=== PATIENT | male | born 1970 | race Asian ===

== ENCOUNTER 2018-10-28 20:56 | Emergency (ER) | payer SELFPAY ==
[~2018-10-28] VITALS: Ht 167.6 cm; Wt 63.6 kg
[2018-10-28 21:05] VITALS: Ht 167.6 cm; Wt 63.6 kg
[2018-10-28] MEDS ORDERED: LISINOPRIL20 MG PO (21:06)
[2018-10-28 22:11] LABS: INR 0.96 (0.85-1.17); PROTIME 12.3 SECONDS (11.6-15.0)
[2018-10-28 22:26] LABS: BASOPHILS 0.2 % (0-2); EOSINOPHILS 2.2 % (0-7); HEMATOCRIT 40.7 % (42.0-54.0); IMMATURE GRANULOCYTES 0.5 % (0-5); LYMPHOCYTES 32.1 % (15-50); MCH 30.6 pg (26.0-34.0); MCHC 34.4 g/dL (31.0-37.0); MCV 89.1 fL (80.0-100.0); PLATELET COUNT 282 10x3/uL (130-400); RBC 4.57 10x6/uL (4.20-6.10); RDW 13.2 % (11.5-14.5); WBC 8.2 10x3/uL (4.8-10.8)
[2018-10-28 22:35] LABS: ALBUMIN 3.4 g/dL (3.4-5.0); ALKALINE PHOSPHATASE 119 U/L (46-116); ALT (SGPT) 58 U/L (10-68); BILIRUBIN - TOTAL 0.33 mg/dL (0.2-1.3); CALC OSMOLALITY 285 mosm/kg (275-300); CALCIUM 8.4 mg/dL (8.5-10.1); CARBON DIOXIDE 30.5 mmol/L (21.0-32.0); CHLORIDE - SERUM 105 mmol/L (98-107); CKMB 0.8 U/L (0.0-3.6); CREATINE KINASE 77 UL (21-232); CREATININE - SERUM 0.9 mg/dL (0.6-1.3); GLUCOSE 149 mg/dL (74-106); POTASSIUM - SERUM 3.6 mmol/L (3.5-5.1); SODIUM 142 mmol/L (136-145); TROPONIN-I < 0.017 ng/mL (0.000-0.060); UREA NITROGEN 12 mg/dL (7-18); eGFR NON AFRICAN AMERICAN > 90 mL/min (90-120)
[2018-10-28 22:36] LABS: PROTEIN - SERUM 7.2 g/dL (6.4-8.2)
[2018-10-28] MEDS ORDERED: NORVASC5 MG PO (23:12)
[2018-10-28 23:38] VITALS: BP 148/96
== END 2018-10-28 23:38 | disposition home or self-care (01) ==
LOC: D.ER 20:56
PROVIDERS: Family Medicine
DX: R03.0 Elevated blood-pressure reading, without diagnosis of hypertension (principal)

== ENCOUNTER 2019-10-29 15:42 | Emergency (ER) | payer BC ==
[~2019-10-29] VITALS: Ht 167.6 cm; Wt 59.1 kg
[~2019-10-29 15:42] MED LIST: LISINOPRIL20 MG PO; NORVASC5 MG PO
[2019-10-29 15:51] VITALS: Ht 167.6 cm; Wt 59.1 kg
[2019-10-29] MEDS ORDERED: ERYTHROMYCIN OPT1 GM LEFT EYE (16:33)
[2019-10-29 17:12] VITALS: BP 162/95
== END 2019-10-29 17:13 | disposition home or self-care (01) ==
LOC: D.ER 15:42
DX: S05.01XA Injury of conjunctiva and corneal abrasion without foreign body, right eye, initial encounter (principal); W22.8XXA Striking against or struck by other objects, initial encounter; Y93.89 Activity, other specified; Y92.9 Unspecified place or not applicable; I10 Essential (primary) hypertension

== ENCOUNTER 2020-03-12 09:04 | Inpatient (IN) | payer BC ==
[2020-03-12] VITALS (8 sets, daily range): BP systolic 129–167; BP diastolic 92–103; BMI 20.2
[~2020-03-12] VITALS: Ht 167.6 cm; Wt 52.6 kg
--- NOTE | ~2020-03-12 | HEMODYNAMI ---
PATIENT:SACHIN CORONA MEDICAL RECORD: [id number] : [birth year] LOCATION:Anish[facility] Oconnell2234 [facility]# [id number] ADMISSION DATE: 03/12/20 Generatedon:03/18/202013:24 Patient name: SACHIN CORONA Patient #: [id number] : 1970 Date of study: 03/18/2020 Page: Of Hemodynamic Procedure Report Patient Data Patient Demographics First Name: SACHIN Gender: Male Last Name: JC : 1970 Patient #: [id number] Age: 49 year(s) Race: SSN: [id number] Additional ID: [id number] Contact details Address: [address] [place] [address] State: [place] City: [facility] Zip code: [address] Past Medical History Allergies Allergen Reaction Date Comments Reported Other allergy 03/18/2020 NKA Admission Admission Data Admission Date: 03/12/2020 Admission Time: 16:14 Arrival Date: 03/18/2020 Arrival Time: 0:00 Admit Source: Other Insurance Payor: Private Room #: [id number].[id number] health insurance Height (in.): 65.75 BSA: 1.57 (m2) Height (cm.): 167 BMI: 18.65 (kg/m2) Weight (lbs.): 114.64 Weight (kg.): 52 Lab Results Lab Result Date: 03/18/2020 Lab Result Time: 0:00 Biochemistry Name Units Result Min Max BUN mg/dl 18 --(---*)-- 7 18 Creatinine mg/dl 1 --(--*-)-- 0.6 1.3 eGFR ml/min 84 -*(----)-- 90 120 NONAFRICAN CBC Name Units Result Min Max Hemoglobin g/dl 15.9 --(--*-)-- 13.5 17.5 Procedure Procedure Types Cath Procedure Diagnostic Procedure ESTRADA Procedure Description Procedure Date Procedure Date: 03/18/2020 Procedure Start Time: 12:48 Procedure Staff Name Function Skyler Ritchie MD Performing Physician Deloris Baltazar RT Monitor Shani Renee RT Scrub Luis Shay RN Nurse Luisa Doyle Floor Framer Kerrie Wellington TWO WAY RADIO TECHNICIAN Additional personnel Procedure Data Cath Procedure Fluoroscopy Diagnostic fluoroscopy Total fluoroscopy Time: 0 time: 0 min min Procedure Complications No complications Procedure Medications Medication Administration Route Dosage 0.9% NaCl I.V. 100 ml/hr Hurricaine [place] P.O. [address] Sprays Refer to Anesthesia Notes for Sedation Medications Hemodynamics Rest BSA: 1.57 (m2) HGB: 15.9 (g/dl) O2 Consumption: Estimated: 191.15 (ml/min) O2 Consumption indexed: Estimated:121.75 (ml/min/m) Heart Rate: 76 (bpm) Snapshots Pre Cath Intra NCS Post Cath Vital Signs Time Heart Resp SPO2 etCO2 NIBP (mmHg) Rhythm Pain Sedation Rate (ipm) (%) (mmHg) Status Level (bpm) 13:02:22 74 17 98 0 132/88(101) NSR 0 (11) 10(A) , No pain 13:06:24 86 13 83 0 129/90(114) NSR 0 (11) 10(A) , No pain 13:10:26 82 17 100 29.2 134/87(121) NSR 0 (11) 9(A) , No pain 13:15:02 94 11 98 30 132/89(106) NSR 0 (11) 8(A) , No pain Medications Time Medication Route Dose Verified Delivered Reason Notes Effectiv eness by by 13:08:28 0.9% NaCl I.V. 100 Luis Luis ml/hr Jsapal Shay RN RN 13:08:54 Hurricaine [address] Luis Smith for local [place] Sprays Jaspal Shay anesthetic RN RN 13:09:15 Refer to Luis Smith for Anesthesia Jaspal Shay sedation Notes for RN RN Sedation Medications Procedure Log Time Note 12:48:52 Arrival Date: 03/18/2020 12:00:00 AM 12:49:01 Patient Height : 65.75 inches 12:49:04 Patient Weight : 114.64 lbs 12:49:10 Admit Source: Other 12:49:19 Insurance Payor : Private health insurance 12:49:53 Lab Result : eGFR NONAFRICAN 84 ml/min 12:49:53 Lab Result : Hemoglobin 15.9 g/dl 12:49:53 Lab Result : BUN 18 mg/dl 12:49:53 Lab Result : Creatinine 1 mg/dl 12:49:58 Diagnostic Cath Status : Elective 13:00:55 Procedure Status Urgent Heart Cath (IP). 13:00:59 Shani Thelma RT(R) (CV) sent for patient. Start room use. 13:01:00 Time tracking: Regular hours (M-F 7:00 - 5:00) 13:01:04 Plan of Care:Hemodynamics will remain stable., Cardiac rhythm will remain stable., Comfort level will be maintained., Respiratory function will remain adequate., Patient/ family verbilizes understanding of procedure., Procedure tolerated without complication., Recovers from procedure without complications.. 13:01:12 Patient received from Med II to CCL 3 Alert and oriented. Tansferred to table in Supine position. 13:01:13 Warm blankets applied, and edward hugger turned on for patient comfort. 13:01:13 Correct patient and procedure confirmed by team. 13:01:15 ECG and BP/O2 sat monitors applied to patient. 13:01:16 Vital chart was started 13:01:19 Baseline sample Acquired. 13:01:23 Full Disclosure recording started 13:01:41 H&P Date Dictated: 03/12/2020 Within 30 days and on chart., H&P Addendum completed by physician on day of procedure. (MUST COMPLETE FOR ALL OUTPATIENTS). 13:01:43 Pre-procedure instructions explained to patient. 13:01:45 Family in patients room. 13:01:47 Patient NPO since Midnight. 13:02:00 Patient allergic to Other allergyNKA 13:02:05 Is the patient allergic to Iodine/contrast media? N/A. 13:02:55 Is patient on blood thinner?No 13:03:13 IV patent on arrival in right forearm with 0.9% NaCl at O. 13:03:29 Alarms reviewed by R. N. 13:03:29 Sharps counted by scrub and verified by R.N. 13:03:31 Physician paged 13:05:00 Is patient on blood thinner?Yes 13:05:03 ACC The patient was administered the following blood thiners within the last 24 hours: ACCPlavix 13:05:30 language barrier. 13:05:37 --------ALL STOP TIME OUT------ 13:05:38 Final Timeout: patient, procedure, and site verified with staff and physician. All members of the team are in agreement. 13:05:44 Fire Safety Assessment: A--An alcohol-based skin anteseptic being used preoperatively., C--Open oxygen or nitrous oxide is being used., D--An ESU, laser, or fiber-optic light is being used. 13:06:00 Sedation plan: TIVA Medication:Propofol 13:06:03 Kerrie Paris CRNA present and monitoring patient for TIVA. 13:06:16 Luisa Doyle Manipulator Operator present for ESTRADA. 13:08:28 0.9% NaCl 100 ml/hr I.V. was administered by Luis Shay RN; ; Verbal order read back and verified. 13:08:54 Hurricaine [place] 1 Sprays P.O. was administered by Luis Shay RN; for local anesthetic; Verbal order read back and verified. 13:09:15 Refer to Anesthesia Notes for Sedation Medications was administered by Luis Shay RN; for sedation; Verbal order read back and verified. 13:09:57 Luisa Doyle Manipulator Operator present for ESTRADA. 13:09:59 ESTRADA started. 13:16:22 ESTRADA completed. 13:16:49 Procedure ended.(Physican Out) 13:16:58 Fluoroscopy time 00.00 minutes. 13:17:09 Post Procedure Pulses reassessed and unchanged 13:17:14 Post-procedure physical assessment completed. ASA score P 1 - A normal healthy patient as per Skyler Ritchie MD. 13:17:25 Patient needs reinforcement of post procedure teaching. 13:17:32 Procedure and supply charges have been captured, reviewed, submitted and are correct. 13:17:47 Procedure Complication : No complications 13:17:50 Vital chart was stopped 13:18:06 ESTRADA Findings: no vegetation noted 13:18:10 Operative report dictated upon procedure completion. 13:18:10 See physician's report for complete and final results. 13:18:17 Report given to [facility] II. 13:18:23 Patient transfered to [facility] with Bed. 13:18:27 End room use (Document Last) 13:23:23 End room use (Document Last) 13:23:51 End room use (Document Last) Signature Audit [place] Stage Time Signature Unsigned Intra-Procedure 03/18/2020 Deloris Baltazar 1:23:23 PM RT(R) Intra-Procedure 03/18/2020 Luis 1:23:51 PM Jaspal ALDANA Intra-Procedure 03/18/2020 Skyler Gama 1:24:32 PM Fernando [facility] [address] [place] [address]
--- NOTE | ~2020-03-12 | TEE ---
PATIENT:SACHIN CORONA MEDICAL RECORD: [id number] LOCATION:D.MS Oconnell[facility] AGE OF PATIENT: 49 ADMISSION DATE: 03/12/20 SEX: M REFERRING PHYSICIAN: INTERPRETING PHYSICIAN: JOSÉ LEÓN MD TRANSESOPHAGEAL ECHOCARDIOGRAM Date: 03/13/20 ESTRADA CHARGE INDICATIONS: PREMEDICATIONS: PATIENT'S RESPONSE PROCEDURE DOPPLER MEASUREMENTS: LVIT LA PA 94 RA LVOT 88 RVOT 60 Asc. Ao 129 AV Gradient Peak 6.68 AV Mean 4.00 AV Area 2.1 MV Gradient Peak 3.49 MV Mean 1.65 MV Area INTERPRETATION: Doppler: 2-D: COLOR FLOW DOPPLER NORMAL SALINE STUDY: MISCELLANOUS: DIAGNOSIS: PLAN: Store Coordinator:3 Dr. Mart Oral Health Therapist: Irish LEYVA COMMENTS: DATE OF SERVICE: 03/18/2020 PROCEDURE: Transesophageal note. DESCRIPTION OF PROCEDURE: After general sedation via TIVA via anesthesia, a transesophageal Omniplane probe was placed into the distal esophagus and proximal stomach without difficulty. Probable LVH. LV internal dimensions are normal. Wall motion is normal. EF is greater than or equal to 55%. Aortic valve is tricuspid with good valve excursion. No significant AI. Left atrium TRANSESOPHAGEAL ECHOCARDIOGRAM REPORT [id number] SACHIN CORONA appears normal. Left atrial appendage is well visualized with no evidence of thrombus, good contractility. Mitral valve appears normal. Mild MR. Right-sided chambers were grossly normal. Trivial TR. At the end of procedure, transesophageal Omniplane probe turned posteriorly and this shows minimal atherosclerotic debris in the descending aorta. During the procedure, the patient was monitored continuously with pulse oximetry, telemetry and noninvasive blood pressure monitoring. No evidence of thrombus at all 4 cardiac chambers. TRANSINT:[id number] Voice Confirmation ID: [id number] DOCUMENT ID: [id number] JOSÉ LEÓN MD CC: [id number] DICTATION DATE: 03/18/20 1318 HOME SERVICE DEMONSTRATOR: 03/18/20 1432 ADM IN [place] [address] [place] [address]
--- NOTE | ~2020-03-12 | EC ---
PATIENT:SACHIN CORONA DATE OF SERVICE: 03/12/20 SEX: M MEDICAL RECORD: [id number] DATE OF : [birth year] LOCATION:D.MS Fritz AGE OF PATIENT: 49 ADMISSION DATE: 03/12/20 REFERRING PHYSICIAN: INTERPRETING PHYSICIAN: JOSÉ LEÓN MD ECHOCARDIOGRAM REPORT ECHO CHARGES 4 ECHO COMPLETE Date: 03/13/20 CLINICAL DIAGNOSIS: CVA ECHOCARDIOGRAPHIC MEASUREMENTS (adult normal given) AC root (d.<3.7cm) 3.8 cm LV Septum d (<1.2 cm> 1.2 cm Valve Excursion 1.7 cm LV Septum (systole) 1.5 cm Left Atria (s.<4.0cm> 3.3 cm LVPW d(<1.2cm) 1.3 cm RV (d.<2.3cm) 3.7 cm LVPW (sytole) 1.6 cm LV diastole(<5.6CM) 3.9 cm MV E-F(>70mm/sec) cm LV systole 2.6 cm LVOT Diameter 1.9 cm MV exc.(>10mm) 1.5 cm Est.ejection fraction (50-75%) % DOPPLER: LVIT cm/sec A 83.0 cm/sec E 71.0 cm/sec LA cm/sec RVSP 27 mmHg LVOT 88 cm/sec AOP1/2T m/s Asc. Ao 129 cm/sec RVOT 60 cm/sec RA cm/sec PA 94 cm/sec AV Gradient Peak 6.68 mmHg AV Mean 4.00 mmHg AV Area 2.1 cm MV Gradient Peak 3.49 mmHg MV Mean 1.65 mmHg MV Area cm COMMENTS: [employer] Fruit Crop Farmer: 2 TANIA LEYVA Glaze Mixer: 3 Dr. Mart TAPE# PACS Pericardial Effusion N DATE OF SERVICE: Adequate 2D, color flow imaging, spectral Doppler, and M-Mode. Mild LVH. LV internal dimensions are normal. Wall motion is normal. EF is greater than or equal to 55%. Aortic valve is tricuspid. No evidence of stenosis by Doppler interrogation. Left atrium is normal. Mitral valve shows no prolapse. Trace MR. Right-sided chambers are grossly normal. Trace TR. TRANSINT:[id number] Voice Confirmation ID: [id number] DOCUMENT ID: [id number] ECHOCARDIOGRAM REPORT [id number] SACHIN CORONA GREGORY A MD CC: [id number] DICTATION DATE: 03/14/20 1039 LEGAL INSTRUMENTS EXAMINER: 03/14/20 1523 ADM IN [place] [id number] [facility], [facility]
[~2020-03-12 09:04] MED LIST changes: +ERYTHROMYCIN OPT1 GM LEFT EYE
[2020-03-12 09:37] LABS: BASOPHILS 0.3 % (0-2); EOSINOPHILS 3.2 % (0-7); HEMATOCRIT 46.4 % (42.0-54.0); HEMOGLOBIN 15.7 g/dL (13.5-17.5); IMMATURE GRANULOCYTES 0.2 % (0-5); MCH 30.3 pg (26.0-34.0); MCHC 33.8 g/dL (31.0-37.0); MCV 89.6 fL (80.0-100.0); MEAN PLATELET VOLUME 9.7 fL (7.4-10.4); MONOCYTES 6.4 % (2-11); NEUTROPHILS 61.9 % (40-80); PLATELET COUNT 248 10x3/uL (130-400); RBC 5.18 10x6/uL (4.20-6.10); RDW 12.9 % (11.5-14.5); WBC 6.3 10x3/uL (4.8-10.8)
[2020-03-12 09:56] LABS: CALC OSMOLALITY 278 mosm/kg (275-300); CALCIUM 8.9 mg/dL (8.5-10.1); CARBON DIOXIDE 24.9 mmol/L (21.0-32.0); CHLORIDE - SERUM 104 mmol/L (98-107); GLUCOSE 103 mg/dL (74-106); POTASSIUM - SERUM 4.1 mmol/L (3.5-5.1); SODIUM 140 mmol/L (136-145); UREA NITROGEN 12 mg/dL (7-18); eGFR NON AFRICAN AMERICAN 84 mL/min (90-120)
[2020-03-12 10:11] LABS: APTT 29.2 SECONDS (22.8-39.4); INR 0.94 (0.85-1.17); PROTIME 12.5 SECONDS (11.6-15.0)
[2020-03-12 10:15] LABS: ALKALINE PHOSPHATASE 90 U/L (30-120); ALT (SGPT) 38 U/L (10-68); BILIRUBIN - TOTAL 0.85 mg/dL (0.2-1.3); CKMB 0.7 U/L (0.0-3.6); CREATINE KINASE 78 UL (21-232); PROTEIN - SERUM 7.8 g/dL (6.4-8.2); TROPONIN-I < 0.017 ng/mL (0.000-0.060)
[2020-03-12 11:21] LABS: UDS - AMPHET NEGATIVE QUAL (NEGATIVE); UDS - BARB POSITIVE QUAL (NEGATIVE); UDS - BENZO NEGATIVE QUAL (NEGATIVE); UDS - COCAINE NEGATIVE QUAL (NEGATIVE); UDS - OPIATE NEGATIVE QUAL (NEGATIVE); UDS - PCP NEGATIVE QUAL (NEGATIVE); UDS - THC NEGATIVE QUAL (NEGATIVE)
[2020-03-12 11:24] LABS: BILIRUBIN NEGATIVE (NEGATIVE); KETONE NEGATIVE (NEGATIVE); NITRITE NEGATIVE (NEGATIVE); UROBILINOGEN NORMAL mg/dL (< 2)
[2020-03-12 17:18] LABS: CHOL - HDL RATIO 6.2 ratio (2.3-4.9); LDL-HDL RATIO 3.5 ratio (1.5-3.5)
[2020-03-12 17:48] LABS: CKMB 0.6 U/L (0.0-3.6); CREATINE KINASE 78 UL (21-232)
[2020-03-12 18:03] LABS: TROPONIN-I < 0.017 ng/mL (0.000-0.060)
--- NOTE | 2020-03-12 18:19 | NUR ---
ALERT WITH EXPRESSIVE APHASIA NOTED WITH MILD WEAKNESS TO RLE AND MODERATE WEAKNESS TO RUE. AMBULATES TO BATHROOM W/O ASSIST. EKG DONE WITH HRRR WITH SKIN INTACT. ENCOURAGED TO USE CALL LIGHT FOR ASSIST.
[2020-03-12 22:41] LABS: CKMB 0.6 U/L (0.0-3.6); CREATINE KINASE 77 UL (21-232); TROPONIN-I < 0.017 ng/mL (0.000-0.060)
[2020-03-13] VITALS: BP 155/96
[2020-03-13 04:00] VITALS: BP 143/101
--- NOTE | 2020-03-13 05:15 | NUR ---
I have reviewed this patient and I concur with the Shift Assessment completed by the Licensed Practical Nurse today this shift.
[2020-03-13 06:33] LABS: BASOPHILS 0.3 % (0-2); EOSINOPHILS 3.6 % (0-7); HEMATOCRIT 46.2 % (42.0-54.0); HEMOGLOBIN 15.2 g/dL (13.5-17.5); IMMATURE GRANULOCYTES 0.1 % (0-5); LYMPHOCYTES 34.1 % (15-50); MCH 29.5 pg (26.0-34.0); MCHC 32.9 g/dL (31.0-37.0); MCV 89.7 fL (80.0-100.0); MEAN PLATELET VOLUME 10.1 fL (7.4-10.4); MONOCYTES 7.2 % (2-11); NEUTROPHILS 54.7 % (40-80); PLATELET COUNT 274 10x3/uL (130-400); RBC 5.15 10x6/uL (4.20-6.10); RDW 12.8 % (11.5-14.5); WBC 7.5 10x3/uL (4.8-10.8)
[2020-03-13 07:23] LABS: ALBUMIN 3.7 g/dL (3.4-5.0); ALKALINE PHOSPHATASE 86 U/L (30-120); ALT (SGPT) 35 U/L (10-68); BILIRUBIN - TOTAL 0.52 mg/dL (0.2-1.3); CALC OSMOLALITY 273 mosm/kg (275-300); CALCIUM 8.7 mg/dL (8.5-10.1); CARBON DIOXIDE 23.4 mmol/L (21.0-32.0); CHLORIDE - SERUM 102 mmol/L (98-107); CKMB 0.6 U/L (0.0-3.6); CREATINE KINASE 63 UL (21-232); GLUCOSE 102 mg/dL (74-106); MAGNESIUM - SERUM 2.1 mg/dL (1.8-2.4); POTASSIUM - SERUM 3.9 mmol/L (3.5-5.1); PROTEIN - SERUM 7.3 g/dL (6.4-8.2); SODIUM 137 mmol/L (136-145); UREA NITROGEN 13 mg/dL (7-18); eGFR NON AFRICAN AMERICAN 84 mL/min (90-120)
[2020-03-13 07:28] LABS: TROPONIN-I < 0.017 ng/mL (0.000-0.060)
[2020-03-13 08:56] VITALS: Ht 167.6 cm; Wt 52.6 kg
[2020-03-13 09:54] VITALS: BP 145/96
[2020-03-13 12:43] VITALS: BP 125/88
[2020-03-13 16:00] VITALS: BP 125/92
[2020-03-13 20:00] VITALS: BP 132/90
--- NOTE | 2020-03-13 20:18 | NUR ---
LYING QUIELTY WITH NO COMPLAINTS VOICED. RESP UNALBORED. SL TO RAC INTACT. CONTINUES TO HAVE RIGHT SIDED WEAKNESS TO UPPER AND LOWER EXTREMITIES. CL IN REACH
[2020-03-14] VITALS: BP 125/85
[2020-03-14 04:00] VITALS: BP 131/92
[2020-03-14 06:24] LABS: BASOPHILS 0.3 % (0-2); EOSINOPHILS 2.9 % (0-7); HEMATOCRIT 47.1 % (42.0-54.0); IMMATURE GRANULOCYTES 0.2 % (0-5); LYMPHOCYTES 29.6 % (15-50); MCH 30.2 pg (26.0-34.0); MCV 88.9 fL (80.0-100.0); MEAN PLATELET VOLUME 9.8 fL (7.4-10.4); MONOCYTES 6.1 % (2-11); NEUTROPHILS 60.9 % (40-80); PLATELET COUNT 257 10x3/uL (130-400); RDW 12.6 % (11.5-14.5); WBC 8.9 10x3/uL (4.8-10.8)
[2020-03-14 06:57] LABS: ALBUMIN 4.1 g/dL (3.4-5.0); ALKALINE PHOSPHATASE 95 U/L (30-120); ALT (SGPT) 39 U/L (10-68); BILIRUBIN - TOTAL 0.66 mg/dL (0.2-1.3); CALC OSMOLALITY 273 mosm/kg (275-300); CARBON DIOXIDE 24.4 mmol/L (21.0-32.0); CHLORIDE - SERUM 101 mmol/L (98-107); CREATININE - SERUM 1.1 mg/dL (0.6-1.3); GLUCOSE 114 mg/dL (74-106); MAGNESIUM - SERUM 2.2 mg/dL (1.8-2.4); SODIUM 136 mmol/L (136-145); UREA NITROGEN 14 mg/dL (7-18); eGFR NON AFRICAN AMERICAN 75 mL/min (90-120)
--- NOTE | 2020-03-14 08:00 | NUR ---
ALERT AND ORIENTED X4. SLIGHT IMPROVEMENT NOTED TO HAND GRASP TO RIGHT HAND.UP ADLIB W/O ANY DYSPHASIA/ ASPIRATION NOTED WITH MEDICATION ADMINISTRATION. ENCOURAGED TO USE CALL LIGHT FOR ASSIST. FEEDS SELF.
[2020-03-14 08:46] VITALS: BP 149/97
[2020-03-14 12:44] VITALS: BP 128/89
[2020-03-14 16:42] VITALS: BP 135/91
[2020-03-14 20:00] VITALS: BP 132/85
--- NOTE | 2020-03-14 20:30 | NUR ---
SITTING ON SIDE OF BED VISITING WITH . RESP EVEN UNLABORED.NO DISTRESS NOTED.CONTINUES TO HAVE WEAKNESS TO RIGHT SIDE. CL IN REACH
[2020-03-15] VITALS: BP 131/87
[2020-03-15 04:00] VITALS: BP 140/97
[2020-03-15 07:03] LABS: BASOPHILS 0.3 % (0-2); EOSINOPHILS 3.3 % (0-7); HEMATOCRIT 45.4 % (42.0-54.0); HEMOGLOBIN 15.1 g/dL (13.5-17.5); IMMATURE GRANULOCYTES 0.3 % (0-5); LYMPHOCYTES 29.9 % (15-50); MCH 29.6 pg (26.0-34.0); MCHC 33.3 g/dL (31.0-37.0); MEAN PLATELET VOLUME 10.1 fL (7.4-10.4); MONOCYTES 6.9 % (2-11); NEUTROPHILS 59.3 % (40-80); PLATELET COUNT 270 10x3/uL (130-400); RDW 12.5 % (11.5-14.5)
[2020-03-15 07:23] LABS: ALBUMIN 3.8 g/dL (3.4-5.0); ALKALINE PHOSPHATASE 92 U/L (30-120); ALT (SGPT) 38 U/L (10-68); BILIRUBIN - TOTAL 0.52 mg/dL (0.2-1.3); CALC OSMOLALITY 271 mosm/kg (275-300); CALCIUM 8.8 mg/dL (8.5-10.1); CARBON DIOXIDE 23.9 mmol/L (21.0-32.0); CHLORIDE - SERUM 102 mmol/L (98-107); CREATININE - SERUM 0.9 mg/dL (0.6-1.3); GLUCOSE 109 mg/dL (74-106); POTASSIUM - SERUM 4.3 mmol/L (3.5-5.1); PROTEIN - SERUM 7.1 g/dL (6.4-8.2); SODIUM 135 mmol/L (136-145); UREA NITROGEN 15 mg/dL (7-18); eGFR NON AFRICAN AMERICAN > 90 mL/min (90-120)
[2020-03-15 09:11] VITALS: BP 122/94
--- NOTE | 2020-03-15 12:00 | NUR ---
Rehab Note- Acute Inpatient Rehab prescreen order received. The patient has BC insurance and will require a PreAuth prior to an acute inpatient rehab stay. He has a pending OT Eval at this time. Will continue to follow and begin the PreAuth process. Thank you for this referral! Debbie Butts RN Clinical Liaison, [facility] Rehab
[2020-03-15 12:41] VITALS: BP 123/87
--- NOTE | 2020-03-15 13:02 | NUR ---
Rehab Prescreening Consult recievced and the insurance was notified. Spoke to Kaela at [employer]. Due to Covid-19 as long as a patient is fully covered and premiums paid, a [id number] is not required thru April. Ref # [id number]. He meets criteria for the ARU and will be accepted when medically stable. Spoke to his CM Kaye Villasenor RN with this information. Melanie Montaño RN Clinical Liaison, Rehab
--- NOTE | 2020-03-15 14:44 | NUR ---
PATIENT IN BED. DENIES PAIN OR NEEDS. BE DLOW POSITION, CALL LIGHT IN REACH. WILL CONTINUE TO MONITOR.
[2020-03-15 16:58] VITALS: BP 137/94
--- NOTE | 2020-03-15 17:15 | NUR ---
OT NOTE: PT COMPLETED SUPINE TO SIT AT EOB WITH SBA. PT COMPLETED TRUNK STABILITY EXERCISES WITH CGA. PT COMPLETED WT BEARING ON AFFECTED UE. [phone] BRITNI ABRAMS C[place]
--- NOTE | 2020-03-15 19:40 | NUR ---
SITTING UP IN CHAIR. CONFUSED. LANGUAGE BARRIER. IN ROOM. PT IS APHASIC. RUE IS FLACCID AND RLE IS WEAK AND PT DRAGS IT WHEN AMBULATING. RESP EVEN AND NONLABORED. TELEMETRY SHOWS SR WITH RATE OF 67. SALINE LOCK NOTED TO RT AC. CL IN REACH. NO DISTRESS.
[2020-03-15 20:00] VITALS: BP 130/94
--- NOTE | 2020-03-15 22:00 | NUR ---
HAS TRIED TO GET OOB WITHOUT ASSISTANCE A FEW TIMES. AMB WITH ASSIST X1. GAIT IS UNSTEADY. BACK TO BED AND BED ALARM ON. CL IN REACH.
[2020-03-16] VITALS: BP 137/85
--- NOTE | 2020-03-16 01:00 | NUR ---
RESTING WITH EYES CLOSED. RESP NONLABORED. NO DISTRESS. CL IN REACH.
[2020-03-16 04:00] VITALS: BP 120/84
[2020-03-16 06:51] LABS: BASOPHILS 0.4 % (0-2); EOSINOPHILS 3.8 % (0-7); HEMATOCRIT 46.2 % (42.0-54.0); HEMOGLOBIN 15.8 g/dL (13.5-17.5); IMMATURE GRANULOCYTES 0.1 % (0-5); LYMPHOCYTES 34.2 % (15-50); MCH 30.4 pg (26.0-34.0); MCHC 34.2 g/dL (31.0-37.0); NEUTROPHILS 54.5 % (40-80); PLATELET COUNT 274 10x3/uL (130-400); RBC 5.19 10x6/uL (4.20-6.10); RDW 12.5 % (11.5-14.5); WBC 6.8 10x3/uL (4.8-10.8)
[2020-03-16 07:12] LABS: ALBUMIN 3.8 g/dL (3.4-5.0); ALKALINE PHOSPHATASE 89 U/L (30-120); ALT (SGPT) 37 U/L (10-68); BILIRUBIN - TOTAL 0.65 mg/dL (0.2-1.3); CALC OSMOLALITY 271 mosm/kg (275-300); CALCIUM 8.8 mg/dL (8.5-10.1); CARBON DIOXIDE 25.1 mmol/L (21.0-32.0); CHLORIDE - SERUM 102 mmol/L (98-107); CREATININE - SERUM 1.1 mg/dL (0.6-1.3); GLUCOSE 101 mg/dL (74-106); MAGNESIUM - SERUM 2.1 mg/dL (1.8-2.4); POTASSIUM - SERUM 4.2 mmol/L (3.5-5.1); PROTEIN - SERUM 7.3 g/dL (6.4-8.2); SODIUM 135 mmol/L (136-145); UREA NITROGEN 18 mg/dL (7-18); eGFR NON AFRICAN AMERICAN 75 mL/min (90-120)
--- NOTE | 2020-03-16 07:30 | NUR ---
REPORT RECIEVE. PT LYING PRONE. RR EVEN AND UNLABORED ON RA. PTS AT BEDSIDE, SHE INFORMED PT THAT HE WAS NPO AND NOT TO EAT OR DRINK TODAY. PT HAS A R AC PIV THAT IS SL. BED LOCKED AND IN LOWEST POSITION, CALL LIGHT WITHIN REACH. WILL CTM
[2020-03-16 09:46] VITALS: BP 128/87
[2020-03-16 12:41] VITALS: BP 121/86
--- NOTE | 2020-03-16 12:45 | NUR ---
PT GIVEN LUNCH TRY, EVEN THO NPO SIGN ON DOOR. DESIGN PRINTER BALLOON NOTIFIED. PTS SCHEDULED ESTRADA IS CANCELED FOR TODAY AND WILL BE RESCHEDULED FOR TOMORROW. PTS SIGNED CONSENTS AND PT STATES HE KNOWS HE IS NOT TO EAT AFTER MIDNIGHT. WILL CTM
--- NOTE | 2020-03-16 17:14 | NUR ---
BUFF CALLED TO LET US KNOW THAT THE PATIENT WILL NOT BE ABLE TO HAVE HIS ESTRADA DONE UNTIL 03-18. ROSA PINEDA NOTIFIED.
--- NOTE | 2020-03-16 17:32 | NUR ---
OT NOTE: PT COMPLETED EOB SITTING WITH SPV. PT COMPLETED SIT TO STAND WITH MOD A ON L SIDE. PT COMPLETED RUE WT BEARING WHILE SEATED EOB. PT COMPLETED SALEEM SOCKS WITH LUE AT EOB WITH CGA. PT IS MOTIVATED TO RETURN TO PLOF. [phone] THANK YOU,CARMELA ESTRADA
--- NOTE | 2020-03-16 18:07 | NUR ---
OT NOTE: PT SITTING UP ON EOB; ATTEMPTED TO ASSESS MOVEMENT IN R UE.. NO MOVEMENT NOTED TODAY. SITTING BALANCE AND TRUNK STRENGTH IS GOOD. PT WAS ABLE TO SALEEM AND DOFF SOCKS WHILE SITTING ON EOB WITH USE OF L HAND. REQUIRED INCREASED ASSIST WITH TRANSFERS COMPARED TO YESTERDAY; ASSISTED P.T. WITH AMB APPROX 15 FT WITH FULL ASSIST TO ADVANCE R LE FROM PHYS THERAPY. PERFORMED WT BEARING ACT WITH R UE/LE. RECOMMEND IP REHAB.. PEGGY CLARK, OTR/L [phone]
[2020-03-16 18:24] VITALS: BP 179/80
--- NOTE | 2020-03-16 19:45 | NUR ---
SITTING UP ON SIDE OF BED. TRIES TO GET UP WITHOUT ASSISTANCE. BED ALARM ON. AMB WITH ASSIST X1. RUE IS FLACCID AND RLE IS WEAK. DRAGS RLE. APHASIC. RESP EVEN AND NONLABORED. SALINE LOCK NOTED TO RT AC. TELEMETRY SHOWS SR WITH RATE OF 84. COMMUNICATION BARRIER. SPEAKS IRISH. TRANSLATION PHONE IN ROOM BUT PT HAS EXPRESSIVE APHASIA.
[2020-03-16 20:00] VITALS: BP 145/102
[2020-03-17] VITALS (7 sets, daily range): BP systolic 112–168; BP diastolic 78–101
--- NOTE | 2020-03-17 02:18 | NUR ---
RESTING QUIETLY WITH EYES CLOSED. RESP EVEN AND NONLABORED. NO DISTRESS. CL IN REACH. BED ALARM ON
--- NOTE | 2020-03-17 06:19 | NUR ---
LYING IN BED. NO DISTRESS. RESP EVEN AND NONLABORED. CL IN REACH. BED ALARM ON FOR PT SAFETY.
[2020-03-17 06:35] LABS: BASOPHILS 0.3 % (0-2); EOSINOPHILS 4.4 % (0-7); HEMATOCRIT 46.6 % (42.0-54.0); HEMOGLOBIN 15.9 g/dL (13.5-17.5); IMMATURE GRANULOCYTES 0.1 % (0-5); LYMPHOCYTES 29.2 % (15-50); MCH 30.2 pg (26.0-34.0); MCHC 34.1 g/dL (31.0-37.0); MCV 88.4 fL (80.0-100.0); MONOCYTES 6.4 % (2-11); NEUTROPHILS 59.6 % (40-80); PLATELET COUNT 278 10x3/uL (130-400); RBC 5.27 10x6/uL (4.20-6.10); RDW 12.4 % (11.5-14.5); WBC 6.8 10x3/uL (4.8-10.8)
[2020-03-17 07:01] LABS: ALBUMIN 3.9 g/dL (3.4-5.0); ALKALINE PHOSPHATASE 92 U/L (30-120); ALT (SGPT) 38 U/L (10-68); CALC OSMOLALITY 271 mosm/kg (275-300); CARBON DIOXIDE 24.9 mmol/L (21.0-32.0); CHLORIDE - SERUM 101 mmol/L (98-107); GLUCOSE 102 mg/dL (74-106); MAGNESIUM - SERUM 2.1 mg/dL (1.8-2.4); PROTEIN - SERUM 7.8 g/dL (6.4-8.2); SODIUM 135 mmol/L (136-145); UREA NITROGEN 18 mg/dL (7-18); eGFR NON AFRICAN AMERICAN 84 mL/min (90-120)
--- NOTE | 2020-03-17 07:16 | NUR ---
PT SLEEPING ON RIGHT SIDE. NO NEEDS AT THIS TIME. SHIFT REPORT RECEIVED. TM
--- NOTE | 2020-03-17 08:32 | NUR ---
IN ROOM. NO NEEDS AT THIS TIME. WCTM
--- NOTE | 2020-03-17 12:36 | NUR ---
PT SITTING ON SIDE OF BED EATING LUNCH. NO NEEDS AT THIS TIME. WCTM
--- NOTE | 2020-03-17 15:18 | NUR ---
PT FOUND SITTING IN CHAIR. CHAIR ALARM APPLIED. CL IN REACH. WCTM
--- NOTE | 2020-03-17 16:00 | NUR ---
BP RESULTS CALLED TO MARQUIS SOILS TECHNICIAN AND DOCUMENTED PER REQUEST
[2020-03-18] VITALS: BP 122/83
--- NOTE | 2020-03-18 02:58 | NUR ---
RESTIMG IM BED AT THIS TIME WITH NO NEEDS NOTED NO S/S OF DISTRESS. SLEEPING ON RIGHT SIDE. CALL LIGHT IN REACG REMANS NPO PER ORDERS FOR ESTRADA AT [phone] TODAY PER ORDERS.
[2020-03-18 04:00] VITALS: BP 139/77
[2020-03-18 06:02] LABS: BASOPHILS 0.4 % (0-2); EOSINOPHILS 3.6 % (0-7); HEMATOCRIT 47.9 % (42.0-54.0); HEMOGLOBIN 16.1 g/dL (13.5-17.5); IMMATURE GRANULOCYTES 0.3 % (0-5); LYMPHOCYTES 31.8 % (15-50); MCH 29.9 pg (26.0-34.0); MCHC 33.6 g/dL (31.0-37.0); MEAN PLATELET VOLUME 10.1 fL (7.4-10.4); NEUTROPHILS 57.9 % (40-80); PLATELET COUNT 315 10x3/uL (130-400); RBC 5.38 10x6/uL (4.20-6.10); RDW 12.6 % (11.5-14.5); WBC 7.5 10x3/uL (4.8-10.8)
[2020-03-18 06:34] LABS: ALBUMIN 4.2 g/dL (3.4-5.0); ALKALINE PHOSPHATASE 103 U/L (30-120); ALT (SGPT) 40 U/L (10-68); BILIRUBIN - TOTAL 0.71 mg/dL (0.2-1.3); CALC OSMOLALITY 275 mosm/kg (275-300); CALCIUM 9.4 mg/dL (8.5-10.1); CHLORIDE - SERUM 101 mmol/L (98-107); CREATININE - SERUM 1.1 mg/dL (0.6-1.3); GLUCOSE 97 mg/dL (74-106); POTASSIUM - SERUM 4.6 mmol/L (3.5-5.1); SODIUM 137 mmol/L (136-145); UREA NITROGEN 19 mg/dL (7-18); eGFR NON AFRICAN AMERICAN 75 mL/min (90-120)
--- NOTE | 2020-03-18 07:00 | NUR ---
RECIEVED REPORT PT NPO FOR ESTRADA CONSENT ON CHART PT IN GOWN.
[2020-03-18 08:51] VITALS: BP 128/89
[2020-03-18 11:59] VITALS: BP 125/79
--- NOTE | 2020-03-18 12:57 | NUR ---
Nutrition follow-up: Pt receiving a low sodium diet with po intake 75-100% of meals Labs reviewed Wt: 115# Pt currently NPO for ESTRADA; to discharge to rehab tomorrow. RDN following.
--- NOTE | 2020-03-18 14:08 | MORECARE ---
CASE MANAGEMENT DISCHARGE SUMMARY PATIENT: SACHIN CORONA UNIT: [id number] ADM DATE: 03/12/20 AGE: 49 : 66 SEX: M ROOM/BED: D.2234 AUTHOR: NARESH SCHULTZ PHYSICIAN: REFERRING PHYSICIAN: BINA GALINDO MD DATE OF SERVICE: 03/18/20 Discharge Plan Patient Name: SACHIN CORONA Facility: [facility]:[place] : 1970 Planned Disposition: Anticipated Discharge Date: Discharge Date: Expected LOS: Initial Reviewer: [email or web address] Initial Review Date: 03/17/2020 Generated: 03/18/20 3:07 pm Comments DCP- Discharge Planning Updated by [email or web address]: Kaye Villasenor on 03/18/20 1:[address] Patient Name: SACHIN CORONA Admission Status: ER Accout number: [id number] Admission Date: 03-12-2020 : 1970 Admission Diagnosis:CEREBRAL INFARCTION, UNSPECIFIED Attending: GLADIS Current LOS: 6 Anticipated DC Date: Planned Disposition: Primary Insurance: [employer] Discharge Planning Comments: ATTEMPTED TO MEET WITH PATIENT YESTERDAY. HE DOES NOT SPEAK MALTESE, I WILL WAIT FOR HIS TO COME AND TALK WITH THEM BOTH CONCERNING DC NEEDS. THERAPY SUGGESTS IN PATIENT REHAB WHEN STABLE FOR DC. PATIENT HAD A CVA AND WILL BENEFIT FROM [facility]. HE IS SCHEDULED FOR A ESTRADA TODAY. ANTICIPATE DC TOMORROW TO [facility] IF ESTRADA NORMAL. CM WILL TALK WITH TODAY WHEN SHE GETS HERE. WILL FOLLOW AND ASSIST NEEDED WITH DC PLANNING/NEEDS. Assistant Associate Full Professor: Kaye Villasenor Patient Name: SACHIN CORONA Page [phone] at 1408 All edits/amendments must be made on the electronic document DICTATION DATE: 03/18/20 1407 TERRAZZO POLISHER: YASHIRA 03/18/20 1407 RPT#: [id number] DC DATE: STATUS: ADM IN [facility] [address] [place] [address] END OF REPORT
[2020-03-18] MEDS ORDERED: PROTONIX40 MG PO (14:59)
[2020-03-18] MEDS ORDERED: ACETAMINOPHEN325 MG PO (14:59)
[2020-03-18] MEDS ORDERED: PLAVIX75 MG PO (14:59)
[2020-03-18] MEDS ORDERED: ASPIRIN81 MG PO (14:59)
[2020-03-18 20:00] VITALS: BP 121/76
[2020-03-19] VITALS: BP 112/71
--- NOTE | 2020-03-19 03:36 | NUR ---
ASSESSED AT THE BEGINNING OF THE SHIFT. PT IS ALERT AND ORIENTED BUT HAS TROUBLE UNDERSTANDING US DUE NON SETSWANA SPEAKING. HE IS APHASIC BUT IS ABLE TO SWALLOW MEDS AND THIN LIQUID. HIS RIGHT SIDE IS FLACID BUT WHEN MOVING IN THE BED SOMETIMES THEY MOVE.HE HAS NOT REQUIRED ANY O2.
[2020-03-19 06:00] LABS: BASOPHILS 0.5 % (0-2); EOSINOPHILS 3.9 % (0-7); HEMATOCRIT 44.6 % (42.0-54.0); HEMOGLOBIN 14.9 g/dL (13.5-17.5); IMMATURE GRANULOCYTES 0.2 % (0-5); LYMPHOCYTES 33.8 % (15-50); MCH 29.9 pg (26.0-34.0); MCHC 33.4 g/dL (31.0-37.0); MCV 89.4 fL (80.0-100.0); MEAN PLATELET VOLUME 9.8 fL (7.4-10.4); MONOCYTES 7.2 % (2-11); NEUTROPHILS 54.4 % (40-80); PLATELET COUNT 270 10x3/uL (130-400); RBC 4.99 10x6/uL (4.20-6.10); RDW 12.4 % (11.5-14.5); WBC 6.6 10x3/uL (4.8-10.8)
[2020-03-19 06:25] LABS: ALBUMIN 3.7 g/dL (3.4-5.0); ALKALINE PHOSPHATASE 83 U/L (30-120); ALT (SGPT) 32 U/L (10-68); BILIRUBIN - TOTAL 0.89 mg/dL (0.2-1.3); CALC OSMOLALITY 276 mosm/kg (275-300); CALCIUM 8.8 mg/dL (8.5-10.1); CARBON DIOXIDE 24.7 mmol/L (21.0-32.0); CHLORIDE - SERUM 103 mmol/L (98-107); CREATININE - SERUM 0.9 mg/dL (0.6-1.3); GLUCOSE 96 mg/dL (74-106); POTASSIUM - SERUM 4.1 mmol/L (3.5-5.1); PROTEIN - SERUM 7.2 g/dL (6.4-8.2); SODIUM 138 mmol/L (136-145); UREA NITROGEN 16 mg/dL (7-18); eGFR NON AFRICAN AMERICAN > 90 mL/min (90-120)
[2020-03-19 08:49] VITALS: BP 115/81
[2020-03-19] MEDS ORDERED: LIPITOR20 MG PO (11:50)
[2020-03-19 12:39] VITALS: BP 121/78
--- NOTE | 2020-03-19 12:52 | NUR ---
OT NOTE: PT ABLE TO PERFORM BED MOB WITHOUT ASSIST; STATIC SITTING BALANCE IS GOOD..DYNAMIC IS FAIR+..ABLE TO SALEEM L SOCK BUT REQIURES ASSIST WITH R.. PERFORMED WT BEARING TASKS WITH R UE/LE...IMPROVING MOVEMENT IN R LE; R UE REMAINS FLACID. WITH ASSIST OF PHYS THERAPY, WE ATTEMPTED AMBULATION WITH QUAD CANE.. REQUIRES CUES TO SLOW HIS SPEED, WT SHIFT, MGMT OF QUAD CANE, ADVANCEMENT OF R LE, AND STABILIZATION OF R KNEE DURING MOVEMENT OF L. PT AMB APPROX 12-15 FT WITH ASSIST X 2. CONT TO RECOMMEND IP REHAB SOON POSSIBLE. PEGGY CLARK, OTR/L
--- NOTE | 2020-03-19 13:08 | NUR ---
0700 BEDSIDE REPORT RECEIVED ASSESSMENT COMPLETE
--- NOTE | 2020-03-19 13:14 | NUR ---
1300 SPOKE WITH MARC RN ON REHAB REPORT GIVEN MARC WILL CALL WHEN THEY ARE READY WITH HIS ROOM
--- NOTE | 2020-03-19 16:50 | NUR ---
1600 TRANSPORTED TO REHAB VIA
--- NOTE | 2020-03-19 17:37 | NUR ---
OT NOTE: PT COMPLETED EOB SITTING WITH MOD I. PT COMPLETED SIT STAND WITH MIN A. PT COMPLETED WT BEARING TO RUE. 120-144 THANK YOU,CARMELA ESTRADA
--- NOTE | 2020-03-22 08:57 | MORECARE ---
CASE MANAGEMENT DISCHARGE SUMMARY PATIENT: SACHIN CORONA UNIT: [id number] ADM DATE: 03/12/20 AGE: 49 : 66 SEX: M ROOM/BED: D.2234 AUTHOR: NARESH SCHULTZ PHYSICIAN: REFERRING PHYSICIAN: BINA GALINDO MD DATE OF SERVICE: 03/22/20 Discharge Plan Patient Name: SACHIN CORONA Facility: [facility]:[place] : 1970 Planned Disposition: Anticipated Discharge Date: Discharge Date: 03/19/2020 Expected LOS: Initial Reviewer: [email or web address] Initial Review Date: 03/17/2020 Generated: 03/22/20 9:56 am Comments DCP- Discharge Planning Updated by [email or web address]: Kaye Villasenor on 03/18/20 1:[address] Patient Name: SACHIN CORONA Admission Status: ER Accout number: [id number] Admission Date: 03-12-2020 : 1970 Admission Diagnosis:CEREBRAL INFARCTION, UNSPECIFIED Attending: GLADIS Current LOS: 6 Anticipated DC Date: Planned Disposition: Primary Insurance: [employer] Discharge Planning Comments: ATTEMPTED TO MEET WITH PATIENT YESTERDAY. HE DOES NOT SPEAK NAMIBIAN, I WILL WAIT FOR HIS TO COME AND TALK WITH THEM BOTH CONCERNING DC NEEDS. THERAPY SUGGESTS IN PATIENT REHAB WHEN STABLE FOR DC. PATIENT HAD A CVA AND WILL BENEFIT FROM [facility]. HE IS SCHEDULED FOR A ESTRADA TODAY. ANTICIPATE DC TOMORROW TO [facility] IF E[facility]ADA NORMAL. CM WILL TALK WITH TODAY WHEN SHE GETS HERE. WILL FOLLOW AND ASSIST NEEDED WITH DC PLANNING/NEEDS. Ssrs Report Developer: Kaye Villasenor Last DP export: 03/18/20 1:08 p Patient Name: SACHIN CORONA Page [id number] at 0857 All edits/amendments must be made on the electronic document DICTATION DATE: 03/22/20 08 SENIOR QUALITY ENGINEER: YASHIRA 03/22/2057 RPT#: [id number] DC DATE:03/19/20 STATUS: DIS IN [place] [id number] [facility], [facility]901 END OF REPORT
== END 2020-03-19 16:00 | DRG 66 ==
LOC: D.ER 09:04 → D.MS 16:14 → D.ER 17:00 → D.MS 03-19 16:00
PROVIDERS: Emergency Medicine; Family Medicine; ADMIT Family Medicine; ATTEND Family Medicine
DX: I63.9 Cerebral infarction, unspecified (principal); I10 Essential (primary) hypertension; R47.01 Aphasia; R26.9 Unspecified abnormalities of gait and mobility; R53.1 Weakness; R41.0 Disorientation, unspecified; R13.10 Dysphagia, unspecified

== ENCOUNTER 2020-03-19 15:50 | Inpatient (IN) | payer BC ==
[~2020-03-19] VITALS: Ht 167.6 cm; Wt 59.0 kg
[~2020-03-19 15:50] MED LIST changes: +ACETAMINOPHEN325 MG PO; +ASPIRIN81 MG PO; +LIPITOR20 MG PO; +PLAVIX75 MG PO; +PROTONIX40 MG PO
[2020-03-19 16:25] VITALS: BP 142/91; BMI 21.0
--- NOTE | 2020-03-19 17:06 | NUR ---
ADMIT FROM ACUTE CARE. PT IS ALERT AND SITTING UP BY SELF. HE ONLY GRUNTS WHEN ASK QUESTIONS. HE DOES NOT SPEAK TO NURSE AND DOES NOT FOLLOW COMMANDS. HE LOOKS AROUND AND LAUGHS AT TIMES. RUE IS FLACCID. RLE IS WEAK. HE WAS ABLE TO TRANSFER HIMSELF FROM WC TO BED BUT LEFT SIDE IS WEAK. HE HAS LEFT FACIAL DROOP ALSO. BED ALARM PLACED ON BED AND HE SUDDENLY GOT UP AND MOVED FROM BED TO CHAIR BY SELF. HE WAS ASKED NOT TO GET UP ON HIS OWN AND CALL FOR HELP. NURSE WENT OVER HOW TO USE CALL BUTTON. HE DID NOT RETURN DEMONSTRATION WHEN ASKED. THERAPY I PAD USED WITH TRANSLATION ETHEL WAS USED TO TRY TO COMMUNICATE WITH PT AND HE DID NOT RESPOND OR FOLLOW COMMANDS. HE WAS INSTRUCTED NOT TO GET OUT OF BED BY SELF BUT DID NOT SEEM TO UNDERSTAND. HIS WAS CALLED AND WAS ASKED HIS RECENT BEHAVIORS. A FRIEND HAD TO TRANSLATE FOR HER WELL SO QUESTIONS COULD BE ANSWERED. SAID PT WAS NOT TALKING TO HER EITHER AND WAS GETTING UP BY HIMSELF IN HIS ROOM AND HAD ALREADY FALLEN IN ACUTE CARE ROOM.
[2020-03-19 19:35] VITALS: BP 129/86
--- NOTE | 2020-03-19 19:35 | NUR ---
RECEIVED PT SITTING UP IN W/C IS AT BEDSIDE. PT DOES NOT SPEAK ESTONIAN. STATED THAT HE SPOKE VERY GOOD ESTONIAN BEFORE CVA, NOW PT WILL NOT SPEAK MACEDONIAN OR ESTONIAN, PT GRUNTS OR SHAKES HEAD YES OR NO. PT SIGNED ADMISSION PAPERS AND WAS GIVEN COPY. PT INTERACTS WITH STAFF APPROPRIATELY AND IS SMILING. PT ASSISTED PT WITH CHANGING INTO PJ. VS STABLE. ASSESSMENT COMPLETE. NO OTHER CONCERNS VOICED. CALL LIGHT AND URINAL WITHIN REACH. FALL PRECAUTIONS IN PLACE. CPOC
--- NOTE | 2020-03-20 00:17 | NUR ---
QUIET HOURS. PT LYING IN BED ON LEFT SIDE EYES CLOSED RESTING QUIETLY. RR EVEN AND UNLABORED. CALL LIGHT WITHIN REACH. WILL CONTINUE TO MONITOR
--- NOTE | 2020-03-20 02:45 | NUR ---
PT ATTEMPTING TO GET UP WITHOUT ASSIST. ASSISTED TO RESTROOM WITH MIN ASSIST. PT VOIDED. PT PERFORMED HAND AND ORAL HYGIENE WITH MIN ASSIST. PT SITTING UP IN W/C BRAKES LOCKED. CALL LIGHT AND WATER WITHIN REACH. FALL PRECAUTIONS IN PLACE. WILL CONTINUE TO MONITOR
--- NOTE | 2020-03-20 05:08 | NUR ---
PT LYING IN BED ON LEFT SIDE EYES CLOSED RESTING. EASILY AROUSED WITH STIMULI. TOILETING OFFERED. PT DENIES NEED. CALL LIGHT, WATER, URINAL WITHIN REACH. NO ACUTE CHANGES IN CONDITION NOTED THIS SHIFT. WILL CONTINUE TO MONITOR
[2020-03-20 07:00] VITALS: BP 131/85
--- NOTE | 2020-03-20 08:00 | NUR ---
SHIFT ASSMT COMPLETED.
--- NOTE | 2020-03-20 12:00 | NUR ---
UP IN WC EATING LUNCH.
[2020-03-20 12:17] VITALS: Ht 167.6 cm; Wt 59.0 kg
--- NOTE | 2020-03-20 16:00 | NUR ---
REMAINS UP IN WC.
[2020-03-20 19:54] LABS: BILIRUBIN NEGATIVE (NEGATIVE); KETONE NEGATIVE (NEGATIVE); NITRITE NEGATIVE (NEGATIVE); UROBILINOGEN NORMAL mg/dL (< 2)
[2020-03-20 20:00] VITALS: BP 129/86
--- NOTE | 2020-03-20 20:00 | NUR ---
RECEIVED PT SITTING UP IN W/C. PT COMMUNICATING WITH NON VERBAL CUES. AT BEDSIDE. PT IS NOT BEING VERBAL WITH ONLY HEAD KNODS AND GRUNTING SOUNDS. PT GAVE PT SHOWER TONIGHT THIS NURSE INFORMED PT HAD SHOWER THIS MORNING, STATES SHE FEELS IT WILL HELP HIM RELAX AND SLEEP BETTER. IS VERY ATTENTIVE TO PT NEEDS. VS STABLE. ASSESSMENT COMPLETE. NO SIGNS OF ACUTE DISTRESS NOTED. CALL LIGHT AND WATER WITHIN REACH. FALL PRECAUTIONS IN PLACE. CPOC
--- NOTE | 2020-03-20 22:44 | NUR ---
PT LYING IN BED EYES CLOSED RESTING QUIETLY. RR EVEN AND UNLABORED. CALL LIGHT AND URINAL WITHIN REACH. FALL PRECAUTIONS IN PLACE. CPOC
--- NOTE | 2020-03-21 01:42 | NUR ---
PT LYING IN BED ON LEFT SIDE EYES CLOSED RESTING. RR EVEN AND UNLABORED. CALL LIGHT WITHIN REACH. BED ALARM ON. WILL CONTINUE TO MONITOR
--- NOTE | 2020-03-21 04:25 | NUR ---
PT LYING IN BED ASLEEP LEFT SIDE. RR EVEN AND UNLABORED. CALL LIGHT WITHIN REACH. CPOC
[2020-03-21 08:00] VITALS: BP 127/84
--- NOTE | 2020-03-21 08:00 | NUR ---
UP IN WC.SHIFT ASSMT COMPLETED. HERE VISITING.
--- NOTE | 2020-03-21 12:00 | NUR ---
UP IN WC,EATING LUNCH.
--- NOTE | 2020-03-21 18:55 | NUR ---
RECEIVED PT SITTING UP IN W/C. AT BEDSIDE. PT ALERT AND NON VERBAL. ANSWERS YES AND NO QUESTIONS BY KNODDING HEAD. NO SIGNS OF ACUTE DISTRESS NOTED. CALL LIGHT AND WATER WITHIN REACH. FALL PRECAUTIONS IN PLACE. CPOC
[2020-03-21 19:50] VITALS: BP 131/86
--- NOTE | 2020-03-22 01:00 | NUR ---
PT LYING IN BED ON RIGHT SIDE EYES CLOSED RESTING. RR EVEN AND UNLABORED. CALL LIGHT WITHIN REACH. WILL CONTINUE TO MONITOR
--- NOTE | 2020-03-22 03:19 | NUR ---
PT SITTING UP ON SIDE OF BED. DENIES ANY PAIN. TOILETING OFFERED. PT DENIES NEED. CALL LIGHT WITHIN REACH. BED ALARM ON. WILL CONTINUE TO MONITOR
--- NOTE | 2020-03-22 05:45 | NUR ---
PT LYING IN BED EYES CLOSED RESTING COMFORTABLY. NO ACUTE CHANGES IN CONDITION NOTED THIS SHIFT. CALL LIGHT AND WATER WITHIN REACH. FALL PRECAUTIONS IN PLACE. CPOC
[2020-03-22 06:31] LABS: BASOPHILS 0.6 % (0-2); EOSINOPHILS 4.2 % (0-7); HEMOGLOBIN 14.5 g/dL (13.5-17.5); IMMATURE GRANULOCYTES 0.1 % (0-5); LYMPHOCYTES 26.3 % (15-50); MCH 30.1 pg (26.0-34.0); MCHC 33.7 g/dL (31.0-37.0); MCV 89.4 fL (80.0-100.0); MEAN PLATELET VOLUME 10.1 fL (7.4-10.4); MONOCYTES 6.9 % (2-11); NEUTROPHILS 61.9 % (40-80); PLATELET COUNT 301 10x3/uL (130-400); RBC 4.81 10x6/uL (4.20-6.10); RDW 12.1 % (11.5-14.5); WBC 6.7 10x3/uL (4.8-10.8)
[2020-03-22 06:47] LABS: CALC OSMOLALITY 278 mosm/kg (275-300); CALCIUM 9.3 mg/dL (8.5-10.1); CARBON DIOXIDE 23.1 mmol/L (21.0-32.0); CHLORIDE - SERUM 103 mmol/L (98-107); CREATININE - SERUM 0.9 mg/dL (0.6-1.3); GLUCOSE 121 mg/dL (74-106); POTASSIUM - SERUM 4.3 mmol/L (3.5-5.1); SODIUM 138 mmol/L (136-145); UREA NITROGEN 17 mg/dL (7-18); eGFR NON AFRICAN AMERICAN > 90 mL/min (90-120)
[2020-03-22 08:00] VITALS: BP 121/66
--- NOTE | 2020-03-22 09:46 | NUR ---
PATIENT ADMITTED TO REHAB FROM ACUTE FLOOR. DISCHARGE PLANS AT THIS TIME IS TO DISCHARGE HOME WITH SPOUSE. WILL CONTINUE TO FOLLOW WITH PATIENT.
--- NOTE | 2020-03-22 13:09 | NUR ---
SITTING UP IN IN ROOM FINISHING LUNCH. HAS BEEN HERE TODAY AND BROUGHT HIM TENNIS SHOES. SHE STATES SHE WILL COME BACK TONIGHT TO GIVE HIM A SHOWER. HE SEEMS TO UNDERSTAND A LITTLE MORE THAN ON ADMISSION AND CAN FOLLOW SIMPLE, ONE STEP COMMANDS WITH PROMPTING SEVERAL TIMES. CALL LIGHT IN REACH
--- NOTE | 2020-03-22 15:13 | NUR ---
RESTING QUIETLY IN BED. HE IS IN "LINE OF SIGHT" FROM NURSING STATION AND DOOR IS KEPT OPEN TO HEAR BED AND CHAIR ALARMS. HE REMAINS IMPULSIVE TO TRANSFER BY SELF FROM ONE PLACE TO ANOTHER. RUE REMAINS FLACCID. HE WILL GRUNT WHEN ASKED A QUESTION AND OCCASIONALY NOD OR SHAKE HEAD TO CLOSED ENDED QUESTION. ANSWERING MORE APPROPRIATELY TODAY. IS CONTINENT OF BOWEL AND BLADDER. STATED SHE WANTED TO COME TO HIS ROOM TONIGHT AND GIVE HIM A SHOWER LIKE SHE DID LAST NIGHT. SHE STATED "HE SHOWER EVERY NIGHT". BOTH PT AND HIS [place]. HAS LIMITED ZAMBIAN. CALL LIGHT IN REACH
--- NOTE | 2020-03-22 18:53 | NUR ---
RECEIVED PT SITTING UP IN W/C VISITING WITH . PT DENIES ANY PAIN OR NEEDS. NO SIGNS OF ACUTE DISTRESS NOTED. CHAIR ALARM ON. WILL CONTINUE TO MONITOR
[2020-03-22 19:25] VITALS: BP 129/78
--- NOTE | 2020-03-23 00:26 | NUR ---
PT LYING IN BED ON LEFT SIDE EYES CLOSED RESTING. RR EVEN AND UNLABORED. CALL LIGHT WITHIN REACH. BED ALARM ON. WILL CONTINUE TO MONITOR
--- NOTE | 2020-03-23 03:45 | NUR ---
PT LYING IN BED SUPINE EYES CLOSED RESTING. RR EVEN AND UNLABORED. CALL LIGHT WITHIN REACH. BED ALARM ON. CPOC
--- NOTE | 2020-03-23 05:05 | NUR ---
ASSISTED PT TO RESTROOM WITH MIN ASSIST. ORAL CARE PERFORMED WITH MIN ASSIST. W/C ALARM ON. DOOR OPEN FOR LINE OF VISION. WILL CONTINUE TO MONITOR
[2020-03-23 08:01] VITALS: BP 128/83
--- NOTE | 2020-03-23 12:10 | NUR ---
Nutrition Follow-up: Diet: Regular PO intake: ~79% average x last 6 meals Last BM: 03/21/20. Wt: 130# (03/20/20) Meds reviewed. Labs noted: Glu 121(H) Recommend continue current diet. RD following.
--- NOTE | 2020-03-23 12:23 | NUR ---
SITTING IN ROOM FOR LUNCH. FEEDS SELF WITH LUE. ANSWERS CLOSED ENDED QUESTIONS WITH HEAD NOD'S AND GRUNTS. CALL LIGHT IN REACH
[2020-03-23 19:37] VITALS: BP 136/87
--- NOTE | 2020-03-23 19:37 | NUR ---
AWAKE AND ALERT. SITTING IN WHEELCHAIR VISITING WITH . IS ASSISTING HIM EAT. NO DISTRESS NOTED.
--- NOTE | 2020-03-24 01:11 | NUR ---
RESTING QUIETLY WITH RESPIRATIONS UNLABORED. NO DISTRESS NOTED.
--- NOTE | 2020-03-24 03:13 | NUR ---
AWAKE AND RESTING IN BED. RESPIRATIONS UNLABORED. WILL CONTINUE TO MONITOR.
--- NOTE | 2020-03-24 05:17 | NUR ---
QUIET HOURS. NO ACUTE CHANGES IN CONDITION THIS SHIFT. RESTING IN BED WITH NO DISTRESS NOTED.
[2020-03-24 06:35] LABS: BASOPHILS 0.3 % (0-2); CALC OSMOLALITY 274 mosm/kg (275-300); CALCIUM 9.4 mg/dL (8.5-10.1); CARBON DIOXIDE 25.8 mmol/L (21.0-32.0); CHLORIDE - SERUM 103 mmol/L (98-107); CREATININE - SERUM 0.9 mg/dL (0.6-1.3); GLUCOSE 109 mg/dL (74-106); HEMATOCRIT 44.8 % (42.0-54.0); HEMOGLOBIN 14.9 g/dL (13.5-17.5); IMMATURE GRANULOCYTES 0.5 % (0-5); LYMPHOCYTES 29.3 % (15-50); MCH 29.7 pg (26.0-34.0); MCHC 33.3 g/dL (31.0-37.0); MCV 89.4 fL (80.0-100.0); MEAN PLATELET VOLUME 10.1 fL (7.4-10.4); MONOCYTES 7.2 % (2-11); NEUTROPHILS 58.7 % (40-80); PLATELET COUNT 315 10x3/uL (130-400); POTASSIUM - SERUM 4.3 mmol/L (3.5-5.1); RBC 5.01 10x6/uL (4.20-6.10); RDW 12.2 % (11.5-14.5); SODIUM 136 mmol/L (136-145); UREA NITROGEN 18 mg/dL (7-18); WBC 6.3 10x3/uL (4.8-10.8); eGFR NON AFRICAN AMERICAN > 90 mL/min (90-120)
[2020-03-24 08:00] VITALS: BP 128/86
--- NOTE | 2020-03-24 08:52 | NUR ---
HE IS ALERT, SETTING UP IN THE WHEELCHAIR, HIS IS VISITING HIM. HE TOOK HIS MEDICATIONS WITHOUT ANY PROBLEMS. HE CAN NOT MOVE HIS RIGHT ARM, BUT HE CAN MOVE HIS RIGHT LEG A SLIGHT BIT. THE CALL LIGHT IS WITHIN REACH.
--- NOTE | 2020-03-24 13:53 | NUR ---
CARE TEAM MEETING. PATIENT IS PROGRESSING IN THERAPY. HIS TENATIVE DC DATE IS 04/07/20. WILL CONTINUE TO FOLLOW WITH PATIENT.
[2020-03-24 19:08] VITALS: BP 124/77
--- NOTE | 2020-03-24 20:00 | NUR ---
PATIENT RECEIVED LAYING IN BED. ASSESSMENT & VITAL SIGNS DONE. BED LOW. ALARM ON. CALL LIGHT WITHIN REACH. WILL CONTINUE TO MONITOR.
--- NOTE | 2020-03-25 02:40 | NUR ---
PATIENT EYES CLOSED. RESPIRATIONS 18 & EVEN. ALARM ON. CALL LIGHT WITHIN REACH. WILL CONTINUE TO MONITOR.
--- NOTE | 2020-03-25 05:44 | NUR ---
ASSISTED PT TO RESTROOM WITH MIN ASSIST.
--- NOTE | 2020-03-25 06:15 | NUR ---
PATIENT PROPELLING SELF IN WHEELCHAIR. STOPPED & TURNED OFF ALARM. PATIENT SAW THIS NURSE & TURNED ALARM BACK ON. WILL CONTINUE TO MONITOR.
[2020-03-25 07:58] VITALS: BP 138/69
--- NOTE | 2020-03-25 08:55 | NUR ---
HE IS UP IN THE WHEELCHAIR FOR BREAKFAST. HE TAKES HIS MEDICATIONS WITHOUT ANY PROBLEMS. THE CAN MOVE HIS RIGHT LEG A SLIGHT BIT, HE CAN NOT MOVE HIS RIGHT ARM. THE CALL LIGHT IS WITHIN REACH AND THE BED ALARM IS ON.
--- NOTE | 2020-03-25 19:30 | NUR ---
RECEIVED SHIFT REPORT FROM DAY SHIFT
[2020-03-25 19:39] VITALS: BP 116/79
--- NOTE | 2020-03-25 20:50 | NUR ---
ASSESSMENT PER FLOW SHEET, USED TRANSLATION ON PHONE, PT DENIES PAIN AT THIS TIME
--- NOTE | 2020-03-25 21:30 | NUR ---
PT AWAKE, SERVED FRESH H20
--- NOTE | 2020-03-25 23:15 | NUR ---
PT RESTING WITH EYES CLOSED, RESP QUIET, NO DISTRESS NOTED, LEFT UNDISTURBED AT THIS TIME, FALL PRECAUTIONS IN PLACE
--- NOTE | 2020-03-26 01:38 | NUR ---
PT RESTING WITH EYES CLOSED, RESP QUIET, NO DISTRESS NOTED, LEFT UNDISTURBED AT THIS TIME, FALL PRECAUTIONS IN PLACE
--- NOTE | 2020-03-26 03:30 | NUR ---
PT RESTING WITH EYES CLOSED, RESP QUIET, NO DISTRESS NOTED, LEFT UNDISTURBED AT THIS TIME, FALL PRECAUTIONS IN PLACE
--- NOTE | 2020-03-26 05:34 | NUR ---
PT LUGGAGE LINER LIGHT, PT SPILLED WATER IN BED, PT UP TO BR VIA WC WITH ASSISTANCE, BEDDING CHANGED, PT BACK TO BED, ADM 0600 MED PER MD ORDERS, SEE EMAR, PT RACHELL WELL, DENIES FURTHER NEEDS OR PAIN AT THIS TIME, FALL PRECAUTIONS IN PLACE
[2020-03-26 07:50] VITALS: BP 102/70
--- NOTE | 2020-03-26 08:00 | NUR ---
PATIENT IS ALERT/ORIENT. SITTING UP IN BED TO EAT BREAKFAST. CALL LIGHT WITHIN REACH. VOICES NO NEEDS AT THIS TIME.
[2020-03-26 09:36] LABS: BASOPHILS 0.3 % (0-2); EOSINOPHILS 3.4 % (0-7); HEMATOCRIT 47.2 % (42.0-54.0); HEMOGLOBIN 15.6 g/dL (13.5-17.5); IMMATURE GRANULOCYTES 0.4 % (0-5); LYMPHOCYTES 27.6 % (15-50); MCH 29.9 pg (26.0-34.0); MCHC 33.1 g/dL (31.0-37.0); MCV 90.6 fL (80.0-100.0); NEUTROPHILS 63.3 % (40-80); PLATELET COUNT 306 10x3/uL (130-400); RBC 5.21 10x6/uL (4.20-6.10); WBC 6.8 10x3/uL (4.8-10.8)
[2020-03-26 09:51] LABS: CALC OSMOLALITY 277 mosm/kg (275-300); CALCIUM 9.3 mg/dL (8.5-10.1); CARBON DIOXIDE 27.2 mmol/L (21.0-32.0); CHLORIDE - SERUM 101 mmol/L (98-107); CREATININE - SERUM 1.1 mg/dL (0.6-1.3); GLUCOSE 133 mg/dL (74-106); POTASSIUM - SERUM 4.8 mmol/L (3.5-5.1); SODIUM 137 mmol/L (136-145); UREA NITROGEN 19 mg/dL (7-18); eGFR NON AFRICAN AMERICAN 75 mL/min (90-120)
--- NOTE | 2020-03-26 14:36 | NUR ---
PATIENT IN REHAB ROOM. WORKING WITH PHYSICAL THERAPIST. DENIES ANY PAIN/DISC AT THIS TIME.
[2020-03-26 19:47] VITALS: BP 142/99
--- NOTE | 2020-03-26 20:00 | NUR ---
PATIENT RECEIVED LAYING IN BED. ASSESSMENT & VITAL SIGNS DONE. NO C/O PAIN OR DISTRESS AT THIS TIME. LEFT. BED LOW. ALARM ON. CALL LIGHT WITHIN REACH. WILL CONTINUE TO MONITOR.
--- NOTE | 2020-03-27 02:30 | NUR ---
I have reviewed this patient and I concur with the Shift Assessment completed by the Licensed Practical Nurse today this shift.
--- NOTE | 2020-03-27 04:24 | NUR ---
PATIENT EYES CLOSED. RESPIRATIONS 18 & EVEN. BED LOW. ALARM ON. CALL LIGHT WITHIN REACH. WILL CONTINUE TO MONITOR.
[2020-03-27 11:12] VITALS: BP 127/92
--- NOTE | 2020-03-27 13:56 | NUR ---
PT RESTING IN BED WITH EYES OPEN CALL LIGHT IN REACH WILL MONITER
--- NOTE | 2020-03-27 18:35 | NUR ---
PT RESTING IN BED WITH EYES OPEN CALL LIGHT IN REACH NO PROBLEMS WILL MONITER
--- NOTE | 2020-03-27 19:59 | NUR ---
PATIENT RECEIVED LAYING IN BED. ASSESSMENT & VITAL SIGNS DONE. ALARM ON. CALL LIGHT WITHIN REACH. WILL CONTINUE TO MONITOR.
[2020-03-27 20:00] VITALS: BP 130/81
--- NOTE | 2020-03-28 00:52 | NUR ---
I have reviewed this patient and I concur with the Shift Assessment completed by the Licensed Practical Nurse today this shift.
--- NOTE | 2020-03-28 02:14 | NUR ---
PATIENT EYES CLOSED. RESPIRATIONS 18 & EVEN. BED LOW. ALARM ON. CALL LIGHT WITHIN REACH. WILL CONTINUE TO MONITOR.
[2020-03-28 09:26] VITALS: BP 128/82
--- NOTE | 2020-03-28 19:19 | NUR ---
PT SITTING UP IN BED IN ROOM AT BEDSIDE. CL IN REACH. DENIES NEEDS AT THIS TIME. BED IN LOW SIDE RAILS X2. RESP EVEN AND UNLABORED. INTRODUCED SELF TO PT AND . WILL CONTINUE TO MONITOR.
[2020-03-28 19:49] VITALS: BP 122/82
--- NOTE | 2020-03-29 01:13 | NUR ---
I have reviewed this patient and I concur with the Shift Assessment completed by the Licensed Practical Nurse today this shift.
[2020-03-29 07:10] VITALS: BP 117/80
[2020-03-29 07:15] LABS: BASOPHILS 0.8 % (0-2); EOSINOPHILS 4.5 % (0-7); HEMATOCRIT 44.2 % (42.0-54.0); HEMOGLOBIN 14.8 g/dL (13.5-17.5); IMMATURE GRANULOCYTES 0.6 % (0-5); LYMPHOCYTES 26.1 % (15-50); MCH 29.8 pg (26.0-34.0); MCHC 33.5 g/dL (31.0-37.0); MCV 89.1 fL (80.0-100.0); MEAN PLATELET VOLUME 10.1 fL (7.4-10.4); MONOCYTES 8.1 % (2-11); NEUTROPHILS 59.9 % (40-80); PLATELET COUNT 298 10x3/uL (130-400); RBC 4.96 10x6/uL (4.20-6.10); RDW 12.1 % (11.5-14.5); WBC 7.2 10x3/uL (4.8-10.8)
[2020-03-29 07:26] LABS: CALC OSMOLALITY 274 mosm/kg (275-300); CALCIUM 9.1 mg/dL (8.5-10.1); CARBON DIOXIDE 26.3 mmol/L (21.0-32.0); CHLORIDE - SERUM 102 mmol/L (98-107); CREATININE - SERUM 0.9 mg/dL (0.6-1.3); GLUCOSE 107 mg/dL (74-106); POTASSIUM - SERUM 4.3 mmol/L (3.5-5.1); SODIUM 136 mmol/L (136-145); UREA NITROGEN 21 mg/dL (7-18); eGFR NON AFRICAN AMERICAN > 90 mL/min (90-120)
--- NOTE | 2020-03-29 09:50 | NUR ---
HE IS ALERT, TOOK HIS MEDICATIONS WITHOUT ANY PROBLEMS. HE IS UP AND DOWN THE HALLWAY IN HIS WHEELCHAIR. HE CAN MOVE HIS RIGHT LEG, CAN NOT MOVE HIS RIGHT ARM. HE IS WORKING WITH THERAPY.
--- NOTE | 2020-03-29 10:23 | NUR ---
Nutrition Follow-up: Diet: Regular PO intake: 75-100% x last 6 meals Last BM: 03/25/20. Wt: 130# (03/20/20), no new weight Meds and labs reviewed Recommend continue current diet. RD Following.
[2020-03-29 19:26] VITALS: BP 121/83
--- NOTE | 2020-03-29 19:49 | NUR ---
PT IN BED WATCHING TV, NO NEEDS NOTED AT THIS TIME, RESPIRATIONS EVEN/UNLABORED, FALL PRECAUTIONS IN PLACE, FLUIDS/CALL LIGHT WITHIN REACH
--- NOTE | 2020-03-29 19:57 | NUR ---
PT IN BED WATCHING TV, NO NEEDS NOTED AT THIS TIME, RESPIRATIONS EVEN/UNLABORED, FALL PRECAUTIONS IN PLACE, FLUIDS/CALL LIGHT WITHIN REACH
--- NOTE | 2020-03-30 02:05 | NUR ---
PT IN BED ASLEEP,AROUSES EASILY TO VOICE NO NEEDS NOTED AT THIS TIME, RESPIRATIONS EVEN/UNLABORED, FALL PRECAUTIONS IN PLACE, FLUIDS/CALL LIGHT WITHIN REACH
--- NOTE | 2020-03-30 05:06 | NUR ---
PT IN BED ASLEEP,AROUSES EASILY TO VOICE NO NEEDS NOTED AT THIS TIME, RESPIRATIONS EVEN/UNLABORED, FALL PRECAUTIONS IN PLACE, FLUIDS/CALL LIGHT WITHIN REACH
--- NOTE | 2020-03-30 07:31 | NUR ---
HE IS ALERT, TOOK HIS MEDICATIIONS WITHOUT ANY PROBLEMS. NO NEW ISSUES. THE CALL LIGHT IS WITHIN REACH.
[2020-03-30 08:00] VITALS: BP 133/88
--- NOTE | 2020-03-30 14:00 | NUR ---
CLINICAL UPDATES FAXED TO [facility] TO WITH CONFORMATION RECIEVED. WILL CONTINUE TO FOLLOW WITH PATIENT.
[2020-03-30 18:47] VITALS: BP 136/83
--- NOTE | 2020-03-30 19:32 | NUR ---
PT IN BED WATCHING TV, RESPIRATIONS EVEN/UNLABORED, NO IMMEDIATE NEEDS NOTED, FALL PRECAUTIONS IN PLACE, FLUIDS/CALL LIGHT WITHIN REACH
--- NOTE | 2020-03-31 02:45 | NUR ---
PT ASLEEP, AROUSES EASILY TO VOICE RESPIRATIONS EVEN/UNLABORED, NO IMMEDIATE NEEDS NOTED, FALL PRECAUTIONS IN PLACE, FLUIDS/CALL LIGHT WITHIN REACH
[2020-03-31 07:15] LABS: BASOPHILS 0.4 % (0-2); EOSINOPHILS 4.9 % (0-7); HEMATOCRIT 45.6 % (42.0-54.0); HEMOGLOBIN 15.2 g/dL (13.5-17.5); IMMATURE GRANULOCYTES 0.4 % (0-5); LYMPHOCYTES 30.9 % (15-50); MCH 29.6 pg (26.0-34.0); MCHC 33.3 g/dL (31.0-37.0); MCV 88.9 fL (80.0-100.0); MEAN PLATELET VOLUME 9.9 fL (7.4-10.4); MONOCYTES 6.9 % (2-11); NEUTROPHILS 56.5 % (40-80); PLATELET COUNT 297 10x3/uL (130-400); RBC 5.13 10x6/uL (4.20-6.10); WBC 6.8 10x3/uL (4.8-10.8)
[2020-03-31 07:22] LABS: CALC OSMOLALITY 275 mosm/kg (275-300); CARBON DIOXIDE 26.7 mmol/L (21.0-32.0); CHLORIDE - SERUM 103 mmol/L (98-107); CREATININE - SERUM 0.9 mg/dL (0.6-1.3); GLUCOSE 103 mg/dL (74-106); POTASSIUM - SERUM 4.3 mmol/L (3.5-5.1); SODIUM 137 mmol/L (136-145); UREA NITROGEN 17 mg/dL (7-18); eGFR NON AFRICAN AMERICAN > 90 mL/min (90-120)
[2020-03-31 07:23] VITALS: BP 122/80
--- NOTE | 2020-03-31 08:03 | NUR ---
PT RESTING IN BED WITH EYES OPEN CALL LIGHT IN REACH WILL MONITER
--- NOTE | 2020-03-31 11:14 | NUR ---
I have reviewed this patient and I concur with the Shift Assessment completed by the Licensed Practical Nurse today this shift.
--- NOTE | 2020-03-31 14:07 | NUR ---
CARE TEAM MEETING: PATIENT IS PROGRESSING IN THERAPY. HIS TENATIVE DC DATE IS 04/07/20. HAVE BEEN UNABLE TO SPEAK WITH SPOUSE. WILL CONTINUE TO FOLLOW WITH PATIENT.
--- NOTE | 2020-03-31 17:59 | NUR ---
PT RESTING IN BED WITH EYES OPEN CALL LIGHT IN REACH WILL MONITER
--- NOTE | 2020-03-31 19:07 | NUR ---
PT IN BED WATCHING TV RESPIRATIONS EVEN/UNLABORED, NO IMMEDIATE NEEDS NOTED, FALL PRECAUTIONS IN PLACE, FLUIDS/CALL LIGHT WITHIN REACH
--- NOTE | 2020-03-31 19:17 | NUR ---
PT IN SHOWER, WATER PURIFICATION CHEMIST CHANGING BED LINEN, PT TV ON RESPIRATIONS EVEN/UNLABORED, NO IMMEDIATE NEEDS NOTED, FALL PRECAUTIONS IN PLACE, FLUIDS/CALL LIGHT WITHIN REACH
[2020-03-31 19:56] VITALS: BP 135/75
--- NOTE | 2020-03-31 23:08 | NUR ---
PT ASLEEP, AROUSES EASILY TO VOICE, RESPIRATIONS EVEN/UNLABORED, NO IMMEDIATE NEEDS NOTED, FALL PRECAUTIONS IN PLACE, FLUIDS/CALL LIGHT WITHIN REACH
--- NOTE | 2020-04-01 07:21 | NUR ---
PT RESTING IN BED WITH EYES OPEN CALL LIGHT IN REACH WILL MONITER
[2020-04-01 07:45] VITALS: BP 113/72
--- NOTE | 2020-04-01 18:23 | NUR ---
PT RESTING IN BED WITH EYES OPEN CALL LIGHT IN REACH WILL MONITER
--- NOTE | 2020-04-01 19:14 | NUR ---
PT SITTING UP IN WHEELCHAIR AT BESIDE WITH TALKING. CL IN REACH. DENIES NEEDS AT THIS TIME. RESP EVEN AND UNLABORED. A/O X4. WILL CONTINUE TO MONITOR.
--- NOTE | 2020-04-02 01:18 | NUR ---
PT RESTING QUIETLY. CL IN REACH. NO DISTRESS NOTED. WCTM
--- NOTE | 2020-04-02 03:37 | NUR ---
I have reviewed this patient and I concur with the Shift Assessment completed by the Licensed Practical Nurse today this shift.
--- NOTE | 2020-04-02 07:27 | NUR ---
PT RESTING IN BED WITH EYES OPEN CALL LIGHT IN REACH WILL MONITER
[2020-04-02 07:56] VITALS: BP 133/96
--- NOTE | 2020-04-02 18:33 | NUR ---
PT RESTING IN BED WITH EYES OPEN CALL LIGHT IN REACH WILL MONITER
--- NOTE | 2020-04-02 20:00 | NUR ---
PATIENT RECEIVED SITTING UP IN BED. ASSESSMENT & VITAL SIGNS DONE. BED LOW. ALARM ON. CALL LIGHT WITHIN REACH. WILL CONTINUE TO MONITOR.
[2020-04-02 20:22] VITALS: BP 121/84
--- NOTE | 2020-04-03 01:51 | NUR ---
PATIENT EYES CLOSED. RESPIRATIONS 18 & EVEN. BED LOW. ALARM ON. CALL LIGHT WITHIN REACH. WILL CONTINUE TO MONITOR.
--- NOTE | 2020-04-03 01:58 | NUR ---
PATIENT EYES CLOSED. RESPIRATIONS 18 & EVEN. BED LOW. ALARM ON. CALL LIGHT WITHIN REACH. WILL CONTINUE TO MONITOR.
--- NOTE | 2020-04-03 05:26 | NUR ---
PATIENT DROPPED MEDICATION PANTOPRAZOLE. NEW PANTOPRAZOLE PULLED FROM [employer].
--- NOTE | 2020-04-03 06:04 | NUR ---
PATIENT STILL COMBATIVE. REFUSED THIS NURSE TO TAKE FINGER STICK FOR BLOOD SUGAR. BED LOW. CALL LIGHT WITHIN REACH. WILL CONTINUE TO MONITOR.
[2020-04-03 08:00] VITALS: BP 136/85
--- NOTE | 2020-04-03 08:00 | NUR ---
SHIFT ASSMT COMPLETED.
--- NOTE | 2020-04-03 18:50 | NUR ---
RECEIVED PT SITTING UP IN W/C IN HALLWAY WAITING ON TO VISIT. PLEASANT AFFECT. DENIES PAIN OR NEEDS. NO ACUTE DISTRESS NOTED. RIGHT ARM FLACCID, RLE WEAK. PT IS ABLE TO PROPEL SELF IN W/C WITHOUT DIFFICULTY. WILL CONTINUE TO MONITOR
[2020-04-03 20:00] VITALS: BP 129/84
--- NOTE | 2020-04-03 22:41 | NUR ---
PT LYING IN BED ON RIGHT SIDE EYES CLOSED RESTING. RR EVEN AND UNLABORED. CALL LIGHT WITHIN REACH. WILL CONTINUE TO MONITOR
--- NOTE | 2020-04-04 02:04 | NUR ---
PT LYING IN BED ON RIGHT SIDE EYES CLOSED RESTING. RR EVEN AND UNLABORED. WILL CONTINUE TO MONITOR
--- NOTE | 2020-04-04 05:07 | NUR ---
PT LYING IN BED AWAKE. EARLY AM MEDS GIVEN WITHOUT DIFFICULTY. DENIES NEEDS OR PAIN. NO ACUTE DISTRESS NOTED. CALL LIGHT AND WATER WITHIN REACH. FALL PRECAUTIONS IN PLACE. CPOC
[2020-04-04 08:00] VITALS: BP 137/86
--- NOTE | 2020-04-04 08:00 | NUR ---
SHIFT ASSMT COMPLETED.BREAKFAST GIVEN.DOES NOT TALK OR WRITE WORDS;MUMBLES AT TIMES. VISITING.
--- NOTE | 2020-04-04 15:46 | RHP ---
PATIENT: SACHIN CORONA MEDICAL RECORD: [id number] ACCOUNT: [id number] LOCATION:[facility] : [birth year] ADMISSION DATE: 03/19/20 REHABILITATION HISTORY AND PHYSICAL EXAMINATION POST ADMISSION PHYSICIAN EXAMINATION ADMITTING DIAGNOSIS: Cerebrovascular accident. HISTORY OF PRESENT ILLNESS: The patient is a 49-year-old gentleman who is [place]ian, came in with complaints of high blood pressure. Apparently, his stated that his speech had been slow and difficulty with ambulation. He has been acting somewhat different, had forgotten most things, was not able to answer questions. Apparently woke up on the morning, unable to perform any normal basic tasks. He was not responding or talking, was confused. He was awake, but not able to follow commands. He did not respond to questions. He had some minor deficits in his right lower extremity. CT of his head showed no signs of hemorrhage. Unfortunately, the followup MRI demonstrated multiple foci of acute ischemia, primary and left middle cerebral artery distribution. CT angiography of his head and neck did not demonstrate any significant cervical stenosis, carotid stenosis, nor was there any critical stenosis of his skull base or distally. The patient had absent blood flow to the A1 segment of the right carotid transitioned into the middle cerebral artery on the left. There was also absent flow in the A1 segment of the right carotid transitioning to the middle cerebral artery with reconstitution of flow via collaterals apparently bilaterally. Plavix was started on admission. The patient has continued to be aphasic and had right-sided hemiparesis since admission, been seen and followed by neurology during his stay. He had been on PT, OT and been progressing slowly. Currently on telemetry, electrolyte protocol. He is monitored for pain control, blood sugar checks. He is on intake and output tables followed closely, monitoring his labs. He is on anticoagulation, needs medication adjustments as needed. He has got proximal weakness, balance deficits, decreased activity tolerance, impaired mobility, decreased range of motion, decreased strength. He has got limited safety awareness and he needs cues for equipment. He has got unsteady gait and balance, fatigues easily, he has got inability to care for himself. These are all barriers to his discharge home. He was completely independent with mobility and ADLs prior to this and still working daily. He is currently set up for max assist with ADLs and mod assist for his mobility. He and his family would like for him to return home at his prior level of functioning. COMORBIDITIES: In this patient include weakness, oropharyngeal dysphagia, embolic stroke, altered mental status, CVA. PAST MEDICAL HISTORY: Really none. PAST SURGICAL HISTORY: None. ALLERGIES: No known drug allergies. CURRENT MEDICATIONS: He is on lisinopril 20 mg daily, b.i.d., he is on clopidogrel 75 mg daily, he is on atorvastatin 20 mg daily, aspirin chewable 81 mg daily, Norvasc 5 mg daily, Protonix 40 mg daily, acetaminophen 650 mg every 6 hours p.r.n., MiraLax 17 grams in 8 ounces of water daily. HABITS: No alcohol or tobacco use. HISTORY AND PHYSICAL [id number] SACHIN CORONA FAMILY HISTORY: Noncontributory. SOCIAL HISTORY: The patient hopes to return back home and get back to his prior level of functioning. REVIEW OF SYSTEMS: GENERAL: Unable to obtain. The patient really does not speak Palauan very well and he is also somewhat aphasic. GENERAL: A well-developed gentleman who is in no acute distress. HEENT: Normocephalic and atraumatic. Mucosa moist. NECK: Supple. No lymphadenopathy. LUNGS: Clear in upper schaefer. No wheezing or rales. HEART: Regular rate and rhythm. No murmurs, rubs or gallops. ABDOMEN: Soft, benign, and nondistended. Positive bowel sounds times 4. EXTREMITIES: No clubbing, cyanosis or edema. NEUROLOGIC: He does have noted difficulty with speech, following commands and also has some difficulty with strength in his leg. LABORATORY DATA: His white count is 6.6, H&H of 15 and 44.6 and platelet count is 270. Chemistry shows sodium 138, potassium 4.1, BUN and creatinine of 16 and 0.9, and blood sugar is noted to be 96. All his LFTs were within normal limits. His triglycerides were elevated at 317. His total cholesterol is 228. His LDL cholesterol was 128. Toxicology screen did show some barbiturates upon his admission. His UA was negative. ASSESSMENT: This is a 49-year-old gentleman admitted to the rehab with a working diagnosis of new-onset ischemic cerebrovascular accident. The patient has potential to make improvement. We instituted the following multidisciplinary therapies including, but not limited to physical, occupational, respiratory, speech, nutritional services, prosthetics and orthotics. Given his complex medical condition and risks for more complications, rehabilitation services cannot be provided at a low level of care such a half-way facility. PLAN: 1. Admit to [facility] for inpatient therapy to include the following disciplines; A. Physical therapy to improve gait, all transfer skills and bed mobility to a modified independent level. B. Occupational therapy to improve activities of daily living. C. Case management to help with discharge planning and placement options. D. Nutrition to assist with nutritional needs. E. Rehabilitation nursing to assist in monitoring the patient's underlying medical conditions and to assist with any type or bladder management. 2. The patient's current medication and medical care will be continued. 3. Placed on standard fall precautions. 4. The patient's estimated length of stay is approximately 7-10 days. 5. We will discuss the patient during care team staff meeting this week. We will continue on Plavix, watch his blood pressures closely on amlodipine and lisinopril, adjust as needed. I will see again in the a.m. TRANSINT:[id number] Voice Confirmation ID: [id number] DOCUMENT ID: [id number] HISTORY AND PHYSICAL [id number] SACHIN CORONA notes whether there has been none or any medical/functional change since admission: - No change since prescreen. CAL attests patient continues to be appropriate for IRF: - Continues to be appropriate. WILLIAMS JIMENES MD at 1546 CC: [id number] DICTATION DATE: 03/20/20 1300 CERTIFIED PROSTHETIST VICE PRESIDENT: 03/20/20 1554 ADM IN [facility] [address] [place] [address]
--- NOTE | 2020-04-04 18:40 | NUR ---
RECEIVED PT SITTING UP IN W/C VISITING . PT IS ALERT AND ORIENTED. HAS EXPRESSIVE APHASIA. NO CONCERNS VOICED BY PT OR PT . DENIES ANY PAIN. SHOWERED PT THIS EVENING. RUE FLACCID. RLE WEAKNESS NOTED. NO ACUTE DISTRESS NOTED. CALL LIGHT WITHIN REACH. WILL CONTINUE TO MONITOR
[2020-04-04 19:30] VITALS: BP 122/86
--- NOTE | 2020-04-04 23:07 | NUR ---
PT LYING IN BED EYES CLOSED RESTING COMFORTABLY. RR EVEN AND UNLABORED. CALL LIGHT WITHIN REACH. WILL CONTINUE TO MONITOR
--- NOTE | 2020-04-05 01:05 | NUR ---
PT LYING IN BED ON RIGHT SIDE EYES CLOSED RESTING. RR EVEN AND UNLABORED.
--- NOTE | 2020-04-05 03:03 | NUR ---
PT LYING IN BED ON LEFT SIDE EYES CLOSED WITH HEAD COVERED RESTING. RR EVEN AND UNLABORED. WILL CONTINUE TO MONITOR
--- NOTE | 2020-04-05 05:05 | NUR ---
PT LYING IN BED ON SUPINE EYES CLOSED HEAD COVERED RESTING. EASILY AROUSED WITH STIMULI. EARLY AM MEDS ADMININSTERED WITHOUT DIFFICULTY. NO ACUTE CHANGES IN CONDITION THIS SHIFT. CALL LIGHT AND WATER WITHIN REACH. WILL CONTINUE TO MONITOR
[2020-04-05 07:13] LABS: BASOPHILS 0.3 % (0-2); EOSINOPHILS 4.6 % (0-7); HEMATOCRIT 43.7 % (42.0-54.0); HEMOGLOBIN 14.8 g/dL (13.5-17.5); IMMATURE GRANULOCYTES 0.2 % (0-5); LYMPHOCYTES 29.4 % (15-50); MCHC 33.9 g/dL (31.0-37.0); MCV 88.6 fL (80.0-100.0); MEAN PLATELET VOLUME 10.2 fL (7.4-10.4); MONOCYTES 7.5 % (2-11); PLATELET COUNT 281 10x3/uL (130-400); RBC 4.93 10x6/uL (4.20-6.10); RDW 12.1 % (11.5-14.5); WBC 6.5 10x3/uL (4.8-10.8)
[2020-04-05 07:26] LABS: CALC OSMOLALITY 277 mosm/kg (275-300); CALCIUM 9.1 mg/dL (8.5-10.1); CARBON DIOXIDE 25.9 mmol/L (21.0-32.0); CHLORIDE - SERUM 104 mmol/L (98-107); GLUCOSE 105 mg/dL (74-106); SODIUM 138 mmol/L (136-145); UREA NITROGEN 17 mg/dL (7-18); eGFR NON AFRICAN AMERICAN 84 mL/min (90-120)
[2020-04-05 07:40] VITALS: BP 121/80
--- NOTE | 2020-04-05 09:51 | NUR ---
Nutrition Follow-up: Diet: Regular PO intake: ~99% x last 9 meals Last BM: 04/04/20. Wt: 130# (03/20/20) Meds and labs reviewed Recommend continue current diet. RD following.
--- NOTE | 2020-04-05 10:39 | NUR ---
SITTING UP IN WC. HAS BEEN ROLLING AROUND UNIT BY SELF. STILL NON VERBAL BUT DID SAY "YEAH" ONE TIME THIS MORNING WHEN NURSE ASKED HIM A QUESTION BUT THEN WOULD NOT SAY IT AGAIN, HE JUST SHOOK HIS HEAD AND GRUNTED. HE WAS NOT ABLE TO FOLLOW TWO STEP COMMANDS. WHEN NURSE ASKED HIM TO TOUCH HIS NOSE 4 TIMES IN A ROW, HE TOUCHED HIS NOSE ONCE AND GRUNTED 4 TIMES......
--- NOTE | 2020-04-05 15:38 | NUR ---
SITTING UP IN WC ON ROOM. DENIES NEEDS. CAN MOVE HIMSELF AROUND SLOWLY IN WC.
--- NOTE | 2020-04-05 19:20 | NUR ---
PT SITTING UP IN WHEELCHAIR. CL IN REACH. A/O X4. DENIES NEEDS AT THIS TIME. RESP EVEN AND UNLABORED. WILL CONTINUE TO MONITOR.
[2020-04-05 19:29] VITALS: BP 126/75
--- NOTE | 2020-04-05 23:42 | NUR ---
PT SITTING UP IN WHEELCHAIR. CL IN REACH. DENIES NEEDS AT THIS TIME. CL IN REACH. RESP EVEN AND UNLABORED. WCTM
[2020-04-06 08:36] VITALS: BP 132/91
--- NOTE | 2020-04-06 09:25 | NUR ---
PT RESTING IN BED WITH EYES OPEN CALL LIGHT IN REACH WILL MONITER
--- NOTE | 2020-04-06 17:51 | NUR ---
PT UP IN WHEELCHAIR CALL LIGHT IN REACH WILL MONITER
--- NOTE | 2020-04-06 19:20 | NUR ---
PT LYING IN BED WATCHING TV. CL IN REACH. DENIES NEEDS AT THIS TIME. BED IN LOW SIDE RAILS X2. BOWEL ACTIVE X4. LUNGS CLEAR. RESP EVEN AND UNLABORED. RIGHT SIDE FLACCID. A/O X4. WILL CONTINUE TO MONITOR.
--- NOTE | 2020-04-07 01:25 | NUR ---
I have reviewed this patient and I concur with the Shift Assessment completed by the Licensed Practical Nurse today this shift.
[2020-04-07 07:23] VITALS: BP 123/85
--- NOTE | 2020-04-07 08:00 | NUR ---
PT UP IN WHEELCHAIR IN ROOM CALL LIGHT IN REACH NO PROBLEMS WILL MONITER
--- NOTE | 2020-04-07 09:00 | NUR ---
I have reviewed this patient and I concur with the Shift Assessment completed by the Licensed Practical Nurse today this shift.
--- NOTE | 2020-04-07 09:16 | NUR ---
PATIENT DISCHARGING HOME TODAY WITH FAMILY. [facility] WILL PROVIDE THERAPY AT HOME. PATIENT RESIDENTIAL REMODELING SUBCONTRACTOR WITH PATIENT INSURANCE [employer] WILL ASSIST PATIENT IN ESTABLISHING A PCP, UNTIL THAT TIME DR. JIMENES AGREES TO SIGN ORDERS. [facility] WILL DELIVER A WHEELCAHIR TO PATIENT.DR. ACOSTA 07-16-19 @ 10:15, DR. REGAN YOUSIF 05/06/20 @ 10:30. JOSUE SIGNED, IMM SERVED AND EXPLAINED, ONE GIVEN TO PATIENT AND ONE FILED IN CHART. DISCHARGE INSTRUCTIONS FAXED TO [facility] , PATIENT INSURANCE , WITH FAX CONFORMATION RECIEVED AND REVIEWED WITH PATIENT AND SPOUSE PER PRIMARY NURSE.
--- NOTE | 2020-04-07 09:36 | NUR ---
[facility] FAX TO [facility] WITH FAX CONFORMATION RECIEVED
--- NOTE | 2020-04-07 10:00 | NUR ---
PT DISCHARGED TO HOME VIA WHEELCHAIR WITH DISCHARGE SUMMARY AND MEDS REVIEWED NO QUESTION OR CONCERNS ALL MEDS CALLED TO [facility] IN THE [place].
== END 2020-04-07 10:43 | disposition home health service (06) | DRG 57 ==
LOC: D.REHAB 15:50
PROVIDERS: ADMIT Emergency Medicine; ATTEND Emergency Medicine
DX: I69.30 Unspecified sequelae of cerebral infarction (principal); R47.01 Aphasia; R53.1 Weakness; R13.12 Dysphagia, oropharyngeal phase; R41.82 Altered mental status, unspecified; R26.9 Unspecified abnormalities of gait and mobility; R53.83 Other fatigue